=== PATIENT | male | born 1945 | race Caucasian/White ===

== ENCOUNTER 2017-10-28 13:49 | Inpatient (IN) | payer MEDICARE ==
[~2017-10-28] VITALS: Ht 172.7 cm; Wt 73.6 kg
[2017-10-28 14:34] VITALS: BP 121/76
[2017-10-28 15:17] VITALS: BP 124/76
[2017-10-28] MEDS ORDERED: MIDAZOLAM 1 MG/ML, 5ML ONE (15:20)
[2017-10-28] MEDS ORDERED: FENTANYL PF 100 MCG/2ML ONE (15:20)
[2017-10-28] MEDS ORDERED: TICAGRELOR 90 MG TABLET ONE (15:20)
[2017-10-28] MEDS ORDERED: VERAPAMIL 2.5 MG/ML, 2ML ONE (15:20)
[2017-10-28] MEDS ORDERED: BIVALIRUDIN 250 MG ONE (15:21)
[2017-10-28] MEDS ORDERED: LIDOCAINE 2%, 20ML ONE (15:21)
[2017-10-28] MEDS ORDERED: HEPARIN 1,000 UNITS/ML, 10ML ONE (15:21)
[2017-10-28] MEDS: METOPROLOL TARTRATE 25 MG TABLET PO SCH (18:34)
[2017-10-28] MEDS ORDERED: ACETAMINOPHEN 325 MG TABLET PO PRN (19:00)
[2017-10-28] MEDS ORDERED: hydrALAzine 20 MG/ML, 1ML IVPush PRN (19:00)
[2017-10-28] MEDS ORDERED: ONDANSETRON 2MG/ML, 2ML IVPush PRN (19:00)
[2017-10-28] MEDS ORDERED: HEPARIN 5,000 UNITS/ML, 1ML IV ONE (20:00)
[2017-10-28 20:19] VITALS: BP 109/68
[2017-10-28] MEDS: ATORVASTATIN 80 MG TABLET PO SCH (21:20)
[2017-10-28] MEDS: HEPARIN 25,000 UNITS/500ML PMX 500 ML IV PRN (21:23)
[2017-10-28] MEDS: SODIUM CHLORIDE 0.9% 1,000 ML IV SCH (21:50)
[2017-10-28] MEDS: morphine SULFATE 10 MG/ML, 1ML IVPush PRN (21:50)
[2017-10-29 00:40] VITALS: BP 113/70
[2017-10-29 03:47] LABS: BASOPHILS # (AUTO) 0.02 x10^3/uL (0-0.1); BASOPHILS % (AUTO) 0 % (0-1); EOSINOPHILS # (AUTO) 0.28 x10^3/uL (0-0.4); EOSINOPHILS % (AUTO) 3 % (1-7); LYMPHOCYTES # (AUTO) 4.42 x10^3/uL (1-3.4); LYMPHOCYTES % (AUTO) 40 % (22-44); MD NO; MEAN CORPUSCULAR HGB CONC 34.1 g/dL (33.2-36.2); MEAN CORPUSCULAR VOLUME 90.8 fL (81-97); MEAN PLATELET VOLUME 9.3 fL (7.4-10.4); MONOCYTES # (AUTO) 0.61 x10^3/uL (0.2-0.8); MONOCYTES % (AUTO) 6 % (2-9); NEUTROPHILS # (AUTO) 5.69 x10^3/uL (1.8-6.8); NEUTROPHILS % (AUTO) 52 % (42-75); PLATELET COUNT 133 x10^3/uL (130-400); RED BLOOD COUNT 4.69 x10^6/uL (4.38-5.82)
[2017-10-29 03:52] LABS: ALBUMIN 3.2 g/dL (3.4-5.0); ANION GAP 7 mmol/L (5-15); CALCIUM 7.9 mg/dL (8.5-10.1); CHLORIDE 110 mmol/L (98-107)
[2017-10-29 03:57] LABS: ALANINE AMINOTRANSFERASE 44 U/L (12-78); ALKALINE PHOSPHATASE 65 U/L (45-117); BILIRUBIN,TOTAL 0.8 mg/dL (0.2-1.0); CHOL/HDL RATIO 2.9; CHOLESTEROL, TOTAL 165 mg/dL (140-239); HDL CHOL % 35 % (26-37); HDL CHOLESTEROL (DIRECT) 57 mg/dL (40-60); LDL CHOLESTEROL,CALCULATED 94 mg/dL (54-169); LDL/HDL RATIO 1.6 (0.5-3.0); TOTAL PROTEIN 6.3 g/dL (6.4-8.2); TRIGLYCERIDES 71 mg/dL (50-200); VLDL CHOLESTEROL 14 mg/dL (0-25)
[2017-10-29] MEDS: HEPARIN 5,000 UNITS/ML, 1ML IV PRN ×3 (04:10→18:54)
[2017-10-29] MEDS ORDERED: ASPIRIN 325 MG TABLET EC PO SCH (06:00)
[2017-10-29] MEDS: METOPROLOL TARTRATE 25 MG TABLET PO SCH ×2 (06:11→18:00)
[2017-10-29] MEDS: morphine SULFATE 10 MG/ML, 1ML IVPush PRN ×2 (06:32→10:15)
[2017-10-29] MEDS: SODIUM CHLORIDE 0.9% 1,000 ML IV SCH ×2 (07:50→08:18)
[2017-10-29] MEDS: HYDROcodone/APAP 10/325 MG TABLET PO PRN ×3 (08:17→20:12)
[2017-10-29] MEDS: POLYETHYLENE GLYCOL 17 GM PACKET PO SCH (08:18)
[2017-10-29] MEDS: DOCUSATE 100 MG CAPSULE PO SCH ×2 (08:18→20:12)
[2017-10-29] MEDS: NICOTINE 21 MG/24 HR PATCH.TD24 TD SCH (15:04)
[2017-10-29 18:21] VITALS: BP 100/57
[2017-10-29] MEDS: ATORVASTATIN 80 MG TABLET PO SCH (20:12)
[2017-10-29] MEDS: ZOLPIDEM 5MG TABLET PO PRN ×2 (21:12→22:19)
[2017-10-29] MEDS: HEPARIN 25,000 UNITS/500ML PMX 500 ML IV PRN (22:23)
[2017-10-30] MEDS: HEPARIN 5,000 UNITS/ML, 1ML IV PRN ×2 (00:45→13:41)
[2017-10-30 00:51] VITALS: BP 129/78
[2017-10-30] MEDS: CALCIUM CARBONATE 500 MG TAB.CHEW PO PRN (01:29)
[2017-10-30] MEDS: HYDROcodone/APAP 10/325 MG TABLET PO PRN ×6 (01:58→22:14)
[2017-10-30] MEDS: SODIUM CHLORIDE 0.9% 1,000 ML IV SCH (03:00)
[2017-10-30] MEDS: morphine SULFATE 10 MG/ML, 1ML IVPush PRN ×2 (04:17→08:30)
[2017-10-30] MEDS: METOPROLOL TARTRATE 25 MG TABLET PO SCH ×2 (06:29→18:05)
[2017-10-30 08:15] VITALS: BP 152/52
[2017-10-30] MEDS ORDERED: ALBUTEROL/IPRATROPIUM 2.5MG/0.5MG, 3 ML NPPB PRN (08:30)
[2017-10-30] MEDS: DOCUSATE 100 MG CAPSULE PO SCH ×2 (08:43→22:13)
[2017-10-30] MEDS: NICOTINE 21 MG/24 HR PATCH.TD24 TD SCH (08:43)
[2017-10-30] MEDS: POLYETHYLENE GLYCOL 17 GM PACKET PO SCH (08:43)
[2017-10-30] MEDS ORDERED: NICOTINE 21 MG/24 HR PATCH.TD24 TD SCH (09:00)
[2017-10-30] MEDS: ALBUTEROL/IPRATROPIUM 2.5MG/0.5MG, 3 ML NPPB SCH ×4 (10:00→23:30)
[2017-10-30 14:30] VITALS: BP 124/73
[2017-10-30 19:07] VITALS: BP 142/81
[2017-10-30] MEDS: HEPARIN 25,000 UNITS/500ML PMX 500 ML IV PRN (19:40)
[2017-10-30] MEDS: ATORVASTATIN 80 MG TABLET PO SCH (22:13)
[2017-10-30] MEDS: DIAZEPAM 5 MG TABLET PO PRN (22:13)
[2017-10-31 02:20] VITALS: BP 119/64
[2017-10-31 05:57] VITALS: BP 145/81
[2017-10-31] MEDS: HYDROcodone/APAP 10/325 MG TABLET PO PRN ×4 (05:58→20:12)
[2017-10-31] MEDS: METOPROLOL TARTRATE 25 MG TABLET PO SCH (05:58)
[2017-10-31 07:31] VITALS: BP 130/67
[2017-10-31] MEDS: ALBUTEROL/IPRATROPIUM 2.5MG/0.5MG, 3 ML NPPB SCH ×5 (07:40→22:09)
[2017-10-31] MEDS: POLYETHYLENE GLYCOL 17 GM PACKET PO SCH (09:00)
[2017-10-31] MEDS: DOCUSATE 100 MG CAPSULE PO SCH ×2 (09:14→20:09)
[2017-10-31] MEDS: ASPIRIN 81 MG TABLET EC PO SCH (11:42)
[2017-10-31] MEDS: LISINOPRIL 5 MG TABLET PO SCH (11:42)
[2017-10-31] MEDS: HEPARIN 25,000 UNITS/500ML PMX 500 ML IV PRN (13:19)
[2017-10-31 13:57] VITALS: BP 112/62
[2017-10-31] MEDS: CARVEDILOL 6.25 MG TABLET PO SCH (16:55)
[2017-10-31 20:00] VITALS: BP 119/72
[2017-10-31] MEDS: ATORVASTATIN 80 MG TABLET PO SCH (20:09)
[2017-10-31] MEDS: DIAZEPAM 5 MG TABLET PO PRN (20:15)
[2017-11-01 02:25] VITALS: BP 138/80
[2017-11-01] MEDS: HYDROcodone/APAP 10/325 MG TABLET PO PRN ×5 (03:30→20:52)
[2017-11-01 04:59] LABS: BASOPHILS # (AUTO) 0.03 x10^3/uL (0-0.1); BASOPHILS % (AUTO) 0 % (0-1); EOSINOPHILS # (AUTO) 0.24 x10^3/uL (0-0.4); EOSINOPHILS % (AUTO) 2 % (1-7); LYMPHOCYTES # (AUTO) 2.96 x10^3/uL (1-3.4); LYMPHOCYTES % (AUTO) 28 % (22-44); MD NO; MEAN CORPUSCULAR HEMOGLOBIN 30.7 pg (27.5-34.5); MEAN CORPUSCULAR HGB CONC 33.5 g/dL (33.2-36.2); MEAN CORPUSCULAR VOLUME 91.5 fL (81-97); MEAN PLATELET VOLUME 9.8 fL (7.4-10.4); MONOCYTES % (AUTO) 5 % (2-9); NEUTROPHILS % (AUTO) 65 % (42-75); PLATELET COUNT 129 x10^3/uL (130-400); RED BLOOD COUNT 4.82 x10^6/uL (4.38-5.82); RED CELL DISTRIBUTION WIDTH 14.2 % (9.4-14.8)
[2017-11-01 05:12] LABS: CHLORIDE 109 mmol/L (98-107)
[2017-11-01 05:27] LABS: ALANINE AMINOTRANSFERASE 35 U/L (12-78); ALBUMIN 3.6 g/dL (3.4-5.0); ALKALINE PHOSPHATASE 69 U/L (45-117); ANION GAP 9 mmol/L (5-15); BILIRUBIN,TOTAL 0.9 mg/dL (0.2-1.0); CALCIUM 8.7 mg/dL (8.5-10.1); CREATININE 0.95 mg/dL (0.7-1.3); TOTAL PROTEIN 7.1 g/dL (6.4-8.2)
[2017-11-01 05:59] VITALS: BP 121/76
[2017-11-01] MEDS: ALBUTEROL/IPRATROPIUM 2.5MG/0.5MG, 3 ML NPPB SCH ×5 (06:00→22:35)
[2017-11-01] MEDS: ASPIRIN 81 MG TABLET EC PO SCH (06:07)
[2017-11-01] MEDS: CARVEDILOL 6.25 MG TABLET PO SCH ×3 (06:07→20:26)
[2017-11-01] MEDS: HEPARIN 5,000 UNITS/ML, 1ML IV PRN (06:31)
[2017-11-01 07:30] VITALS: BP 149/77
[2017-11-01] MEDS: POLYETHYLENE GLYCOL 17 GM PACKET PO SCH (07:42)
[2017-11-01] MEDS: DOCUSATE 100 MG CAPSULE PO SCH ×2 (07:52→21:42)
[2017-11-01] MEDS: LISINOPRIL 5 MG TABLET PO SCH (07:52)
[2017-11-01] MEDS: HEPARIN 25,000 UNITS/500ML PMX 500 ML IV PRN (07:58)
[2017-11-01 13:25] VITALS: BP 116/68
[2017-11-01] MEDS ORDERED: METOPROLOL TARTRATE 25 MG TABLET PO ONE (14:30)
[2017-11-01] MEDS ORDERED: ACETAMINOPHEN 325 MG TABLET PO PRN (14:30)
[2017-11-01] MEDS ORDERED: INSULIN LISPRO 100 UNITS/ML, PEN SQ-INSULIN SCH (14:30)
[2017-11-01] MEDS ORDERED: CHLORHEXIDINE 15 ML BOTTLE MM PRN (14:30)
[2017-11-01 14:56] LABS: ALANINE AMINOTRANSFERASE 39 U/L (12-78); ALBUMIN 3.5 g/dL (3.4-5.0); ANION GAP 6 mmol/L (5-15); CALCIUM 8.7 mg/dL (8.5-10.1); CHLORIDE 108 mmol/L (98-107); CREATININE 1.03 mg/dL (0.7-1.3)
[2017-11-01 14:57] LABS: BASOPHILS # (AUTO) 0.03 x10^3/uL (0-0.1); BASOPHILS % (AUTO) 0 % (0-1); EOSINOPHILS # (AUTO) 0.26 x10^3/uL (0-0.4); EOSINOPHILS % (AUTO) 3 % (1-7); LYMPHOCYTES % (AUTO) 39 % (22-44); MD NO; MEAN CORPUSCULAR HEMOGLOBIN 31.1 pg (27.5-34.5); MEAN CORPUSCULAR HGB CONC 34.1 g/dL (33.2-36.2); MEAN CORPUSCULAR VOLUME 91.1 fL (81-97); MEAN PLATELET VOLUME 9.9 fL (7.4-10.4); MONOCYTES % (AUTO) 6 % (2-9); NEUTROPHILS # (AUTO) 4.15 x10^3/uL (1.8-6.8); NEUTROPHILS % (AUTO) 51 % (42-75); PLATELET COUNT 132 x10^3/uL (130-400); RED BLOOD COUNT 4.68 x10^6/uL (4.38-5.82); RED CELL DISTRIBUTION WIDTH 14.2 % (9.4-14.8)
[2017-11-01 14:59] LABS: ALKALINE PHOSPHATASE 64 U/L (45-117); BILIRUBIN,TOTAL 0.6 mg/dL (0.2-1.0); TOTAL PROTEIN 6.9 g/dL (6.4-8.2)
[2017-11-01 15:06] LABS: INTERNATIONAL NORMALIZED RATIO 1.1 (0.93-1.1); PROTHROMBIN TIME 11.4 Seconds (9.6-11.5)
[2017-11-01 15:12] LABS: HEMOGLOBIN A1C 5.9 % (4.2-6.3)
[2017-11-01 18:54] LABS: MICROSCOPIC NOT IND
[2017-11-01 19:20] VITALS: BP 135/73
[2017-11-01] MEDS ORDERED: SODIUM CHLORIDE FLUSH 10ML SYR IVF SCH (21:00)
[2017-11-01] MEDS: DIAZEPAM 5 MG TABLET PO PRN (21:42)
[2017-11-01] MEDS: ATORVASTATIN 80 MG TABLET PO SCH (21:42)
[2017-11-01] MEDS: MUPIROCIN OINT 2%, 22GM TP SCH (22:28)
[2017-11-02] MEDS ORDERED: ALBUMIN HUMAN 5% 500 ML IV PRN (00:30)
[2017-11-02] MEDS ORDERED: METOPROLOL TARTRATE 25 MG TABLET ONE (04:35)
[2017-11-02 04:40] VITALS: BP_SYST 132; BP_SYST 134; BP_DIAS 76; BP_DIAS 79
[2017-11-02] MEDS: HYDROcodone/APAP 10/325 MG TABLET PO PRN (04:52)
[2017-11-02] MEDS: MUPIROCIN OINT 2%, 22GM TP SCH (04:52)
[2017-11-02] MEDS: ASPIRIN 81 MG TABLET EC PO SCH (04:53)
[2017-11-02] MEDS: ALBUTEROL/IPRATROPIUM 2.5MG/0.5MG, 3 ML NPPB SCH ×5 (06:00→22:24)
[2017-11-02] MEDS ORDERED: THROMBIN 5,000 UNIT VIAL TP ONE ×2 (07:09→11:35)
[2017-11-02] MEDS ORDERED: HEPARIN 1,000 UNITS/ML, 10ML ONE (07:09)
[2017-11-02] MEDS ORDERED: PAPAVERINE 30 MG/ML, 2ML ONE (07:10)
[2017-11-02] MEDS ORDERED: MIDAZOLAM 10MG/2 ML ONE (07:12)
[2017-11-02] MEDS ORDERED: FENTANYL PF 1000 MCG/20ML ONE (07:12)
[2017-11-02] MEDS ORDERED: ALBUTEROL/IPRATROPIUM 2.5MG/0.5MG, 3 ML ONE (07:27)
[2017-11-02] MEDS ORDERED: MANNITOL PMX 20% 500 ML IVPB PRN (07:30)
[2017-11-02] MEDS ORDERED: DEXMEDETOMIDINE 200 MCG in SODIUM CHLORIDE 0.9% 48 ML IV SCH (07:30)
[2017-11-02] MEDS ORDERED: POTASSIUM CHLORIDE 80 MEQ, SODIUM BICARBONATE 8.4% 10 MEQ, MAGNESIUM SULFATE 0.5 GM, LI... IV PRN (07:30)
[2017-11-02] MEDS ORDERED: PHENYLEPHRINE 10 MG in SODIUM CHLORIDE 0.9% 249 ML IV PRN ×2 (07:30→12:08)
[2017-11-02] MEDS ORDERED: VANCOMYCIN PMX 1GM/200ML 200 ML IVPB PRN (07:30)
[2017-11-02] MEDS ORDERED: EPINEPHRINE 2 MG in SODIUM CHLORIDE 0.9% 248 ML IV SCH (07:30)
[2017-11-02] MEDS ORDERED: REGULAR INSULIN 62.5 UNITS in SODIUM CHLORIDE 0.9% 249.375 ML IV PRN ×2 (07:30→12:08)
[2017-11-02] MEDS ORDERED: ROCURONIUM 10 MG/ML,10ML ONE (08:15)
[2017-11-02] MEDS: DOCUSATE 100 MG CAPSULE PO SCH ×4 (09:00→21:40)
[2017-11-02] MEDS: POLYETHYLENE GLYCOL 17 GM PACKET PO SCH (09:00)
[2017-11-02] MEDS ORDERED: KETAMINE 10 MG/ML, 20ML ONE (09:02)
[2017-11-02] MEDS ORDERED: FENTANYL PF 250 MCG/5ML ONE ×2 (09:08)
[2017-11-02] MEDS ORDERED: PAPAVERINE 30 MG/ML, 2ML IVPush ONE (09:15)
[2017-11-02] MEDS ORDERED: HEPARIN 1,000 UNITS/ML, 10ML IV ONE (09:16)
[2017-11-02] MEDS ORDERED: DOBUTAMINE 250 MG in SODIUM CHLORIDE 0.9% 230 ML IV PRN (12:08)
[2017-11-02] MEDS ORDERED: SODIUM CHLORIDE 0.9% 1,000 ML IV PRN (12:08)
[2017-11-02] MEDS ORDERED: NITROGLYCERIN/D5W PMX 240 ML IV PRN (12:08)
[2017-11-02] MEDS ORDERED: DEXMEDETOMIDINE 200 MCG in SODIUM CHLORIDE 0.9% 48 ML IV PRN (12:08)
[2017-11-02] MEDS ORDERED: methylPREDNISolone SOD SUCC 125 MG/2 ML ONE (12:25)
[2017-11-02] MEDS ORDERED: ALBUMIN HUMAN 25% 50 ML ONE (12:26)
[2017-11-02] MEDS ORDERED: LIDOCAINE 2% 100MG/5ML SYRINGE ONE (12:26)
[2017-11-02] MEDS ORDERED: HEPARIN 1,000 UNITS/ML, 30ML ONE (12:27)
[2017-11-02] MEDS ORDERED: SODIUM BICARBONATE 1 MEQ/ML, 50ML VIAL ONE (12:27)
[2017-11-02] MEDS ORDERED: BISACODYL 5 MG EC TABLET PO PRN (12:30)
[2017-11-02] MEDS ORDERED: LACTATED RINGERS 1,000 ML IV PRN (12:30)
[2017-11-02] MEDS ORDERED: INSULIN REGULAR 100 UNITS/ML, 3ML VIAL IVPush PRN (12:30)
[2017-11-02] MEDS: KSCALE TO 4.5 IV SCH ×2 (12:30→18:30)
[2017-11-02] MEDS ORDERED: PROCHLORPERAZINE 5 MG/ML, 2ML IVPush PRN (12:30)
[2017-11-02] MEDS ORDERED: EPINEPHRINE 2 MG in SODIUM CHLORIDE 0.9% 248 ML IV PRN (12:30)
[2017-11-02] MEDS: CHLORHEXIDINE 15 ML BOTTLE MM SCH (12:30)
[2017-11-02] MEDS ORDERED: ACETAMINOPHEN 650 MG SUPP PR PRN (12:30)
[2017-11-02] MEDS ORDERED: GLUCAGON 1 MG IM PRN (12:30)
[2017-11-02] MEDS ORDERED: SODIUM BICARB 8.4%, 50ML SYRINGE IV PRN (12:30)
[2017-11-02] MEDS ORDERED: DEXTROSE 4 GM TAB.CHEW PO PRN (12:30)
[2017-11-02] MEDS ORDERED: MIDAZOLAM 1 MG/ML, 5ML IVPush PRN (12:30)
[2017-11-02] MEDS ORDERED: BISACODYL 10 MG SUPP PR PRN (12:30)
[2017-11-02] MEDS ORDERED: ACETAMINOPHEN 325 MG TABLET PO PRN (12:30)
[2017-11-02] MEDS ORDERED: DEXTROSE 50%, 50ML SYRINGE IVPush PRN (12:30)
[2017-11-02 12:49] LABS: GLUCOSE BY BLOOD GAS ANALYZER 124 mg/dL (70-110); HEMOGLOBIN BY BLOOD GAS ANALYZ 12.6 g/dL (14.0-18.0); POTASSIUM BY BLOOD GAS ANALYZR 3.4 mmol/L (3.6-5.5)
[2017-11-02 12:50] LABS: FIO2 50 %
[2017-11-02] MEDS: MAGNESIUM SULFATE 1 GM in SODIUM CHLORIDE 0.9% 50 ML IVPB SCH (13:33)
[2017-11-02] MEDS ORDERED: POTASSIUM CHLORIDE PMX 100 ML IVPB ONE (15:00)
[2017-11-02] MEDS: morphine SULFATE 10 MG/ML, 1ML IVPush PRN ×4 (15:23→23:21)
[2017-11-02] MEDS: INSULIN LISPRO 100 UNITS/ML, PEN SQ-INSULIN SCH ×2 (16:00→21:40)
[2017-11-02] MEDS: ONDANSETRON 2MG/ML, 2ML IVPush PRN (16:09)
[2017-11-02] MEDS ORDERED: [UNRECOGNIZED DRUG - OTHER] IVPB SCH (19:00)
[2017-11-02] MEDS ORDERED: VANCOMYCIN IVPB SCH (19:00)
[2017-11-02] MEDS: ATORVASTATIN 80 MG TABLET PO SCH (21:40)
[2017-11-02] MEDS ORDERED: ALBUTEROL/IPRATROPIUM 2.5MG/0.5MG, 3 ML NPPB PRN (23:00)
[2017-11-02] MEDS: SODIUM CHLORIDE FLUSH 10ML SYR IVF SCH (23:07)
[2017-11-02] MEDS: MUPIROCIN OINT 2%, 22GM NAS SCH (23:07)
[2017-11-03] MEDS: HYDROcodone/APAP 5/325 TABLET PO PRN ×3 (00:23→20:06)
[2017-11-03] MEDS: KSCALE TO 4.5 IV SCH ×2 (01:12→07:22)
[2017-11-03] MEDS: CHLORHEXIDINE 15 ML BOTTLE MM SCH ×2 (01:25→12:17)
[2017-11-03] MEDS: OXYcodone IR 5MG TABLET PO PRN ×2 (01:31→12:17)
[2017-11-03] MEDS: morphine SULFATE 10 MG/ML, 1ML IVPush PRN ×6 (02:50→21:57)
[2017-11-03 04:00] VITALS: BP 111/45
[2017-11-03 04:49] LABS: MEAN CORPUSCULAR HEMOGLOBIN 30.8 pg (27.5-34.5); MEAN CORPUSCULAR HGB CONC 33.3 g/dL (33.2-36.2); MEAN CORPUSCULAR VOLUME 92.6 fL (81-97); PLATELET COUNT 173 x10^3/uL (130-400); RED BLOOD COUNT 4.27 x10^6/uL (4.38-5.82); RED CELL DISTRIBUTION WIDTH 14.4 % (9.4-14.8)
[2017-11-03 04:57] LABS: ALBUMIN 3.5 g/dL (3.4-5.0); ANION GAP 8 mmol/L (5-15); CALCIUM 8.2 mg/dL (8.5-10.1); CHLORIDE 114 mmol/L (98-107); CREATININE 1.11 mg/dL (0.7-1.3)
[2017-11-03 04:58] LABS: INTERNATIONAL NORMALIZED RATIO 1.14 (0.93-1.1); PROTHROMBIN TIME 11.8 Seconds (9.6-11.5)
[2017-11-03 05:19] LABS: BASOPHILS # (AUTO) 0.04 x10^3/uL (0-0.1); BASOPHILS % (AUTO) 0 % (0-1); EOSINOPHILS % (AUTO) 0 % (1-7); LYMPHOCYTES # (AUTO) 1.78 x10^3/uL (1-3.4); LYMPHOCYTES % (AUTO) 9 % (22-44); MD SCAN; MONOCYTES # (AUTO) 1.53 x10^3/uL (0.2-0.8); MONOCYTES % (AUTO) 8 % (2-9); NEUTROPHILS # (AUTO) 15.79 x10^3/uL (1.8-6.8); NEUTROPHILS % (AUTO) 83 % (42-75)
[2017-11-03] MEDS: INSULIN LISPRO 100 UNITS/ML, PEN SQ-INSULIN SCH ×4 (07:00→21:26)
[2017-11-03] MEDS: ALBUTEROL/IPRATROPIUM 2.5MG/0.5MG, 3 ML NPPB SCH ×4 (07:10→14:01)
[2017-11-03] MEDS: DOCUSATE 100 MG CAPSULE PO SCH ×3 (07:56→21:18)
[2017-11-03] MEDS ORDERED: FUROSEMIDE 20 MG/2 ML IV ONE (09:30)
[2017-11-03] MEDS ORDERED: ALBUMIN HUMAN 25% 100 ML IV ONE (09:30)
[2017-11-03] MEDS: POLYETHYLENE GLYCOL 17 GM PACKET PO SCH (09:37)
[2017-11-03] MEDS: SODIUM CHLORIDE FLUSH 10ML SYR IVF SCH ×2 (09:38→21:18)
[2017-11-03] MEDS: ASPIRIN 81 MG TABLET EC PO SCH (09:38)
[2017-11-03] MEDS: LISINOPRIL 5 MG TABLET PO SCH (09:40)
[2017-11-03] MEDS: MUPIROCIN OINT 2%, 22GM NAS SCH ×2 (09:40→21:18)
[2017-11-03] MEDS: LINEZOLID PMX 600MG/300ML 300 ML IV SCH ×2 (10:01→21:57)
[2017-11-03] MEDS: MAGNESIUM SULFATE 1 GM in SODIUM CHLORIDE 0.9% 50 ML IVPB SCH (12:17)
[2017-11-03] MEDS: CARVEDILOL 6.25 MG TABLET PO SCH (18:47)
[2017-11-03] MEDS: ATORVASTATIN 80 MG TABLET PO SCH (21:00)
[2017-11-03] MEDS: ZOLPIDEM 5MG TABLET PO PRN (23:23)
[2017-11-04] MEDS: morphine SULFATE 10 MG/ML, 1ML IVPush PRN ×2 (00:19→03:33)
[2017-11-04] MEDS: CHLORHEXIDINE 15 ML BOTTLE MM SCH ×4 (01:37→21:38)
[2017-11-04] MEDS: HYDROcodone/APAP 5/325 TABLET PO PRN (02:05)
[2017-11-04 03:48] LABS: BASOPHILS # (AUTO) 0.04 x10^3/uL (0-0.1); BASOPHILS % (AUTO) 0 % (0-1); EOSINOPHILS # (AUTO) 0.02 x10^3/uL (0-0.4); EOSINOPHILS % (AUTO) 0 % (1-7); LYMPHOCYTES % (AUTO) 17 % (22-44); MD NO; MEAN CORPUSCULAR HEMOGLOBIN 31.3 pg (27.5-34.5); MEAN CORPUSCULAR HGB CONC 33.8 g/dL (33.2-36.2); MEAN CORPUSCULAR VOLUME 92.5 fL (81-97); MEAN PLATELET VOLUME 9.7 fL (7.4-10.4); MONOCYTES # (AUTO) 1.07 x10^3/uL (0.2-0.8); MONOCYTES % (AUTO) 8 % (2-9); NEUTROPHILS # (AUTO) 10.74 x10^3/uL (1.8-6.8); NEUTROPHILS % (AUTO) 75 % (42-75); PLATELET COUNT 114 x10^3/uL (130-400); RED BLOOD COUNT 3.61 x10^6/uL (4.38-5.82); RED CELL DISTRIBUTION WIDTH 14.6 % (9.4-14.8)
[2017-11-04 03:56] LABS: INTERNATIONAL NORMALIZED RATIO 1.24 (0.93-1.1); PROTHROMBIN TIME 12.8 Seconds (9.6-11.5)
[2017-11-04 03:59] LABS: ANION GAP 7 mmol/L (5-15); CALCIUM 7.6 mg/dL (8.5-10.1); CHLORIDE 111 mmol/L (98-107); CREATININE 0.96 mg/dL (0.7-1.3)
[2017-11-04 04:00] VITALS: BP 117/59
[2017-11-04] MEDS: INSULIN LISPRO 100 UNITS/ML, PEN SQ-INSULIN SCH ×4 (04:53→21:38)
[2017-11-04] MEDS: CARVEDILOL 6.25 MG TABLET PO SCH ×2 (05:44→17:35)
[2017-11-04] MEDS: ALBUTEROL/IPRATROPIUM 2.5MG/0.5MG, 3 ML NPPB SCH ×4 (07:00→19:54)
[2017-11-04] MEDS: POLYETHYLENE GLYCOL 17 GM PACKET PO SCH (09:00)
[2017-11-04] MEDS: ENOXAPARIN 40 MG/0.4 ML SQ SCH (09:00)
[2017-11-04] MEDS: LISINOPRIL 5 MG TABLET PO SCH ×2 (09:00→18:18)
[2017-11-04] MEDS ORDERED: FUROSEMIDE 20 MG/2 ML ONE (10:24)
[2017-11-04] MEDS: LINEZOLID PMX 600MG/300ML 300 ML IV SCH ×2 (10:29→21:38)
[2017-11-04] MEDS ORDERED: FUROSEMIDE 20 MG/2 ML IV ONE ×2 (10:30→16:00)
[2017-11-04] MEDS: SODIUM CHLORIDE FLUSH 10ML SYR IVF SCH ×2 (10:30→21:36)
[2017-11-04] MEDS: ASPIRIN 81 MG TABLET EC PO SCH (10:35)
[2017-11-04] MEDS: DOCUSATE 100 MG CAPSULE PO SCH ×2 (10:35→21:37)
[2017-11-04] MEDS: MUPIROCIN OINT 2%, 22GM NAS SCH ×2 (10:37→21:37)
[2017-11-04] MEDS: MAGNESIUM SULFATE 1 GM in SODIUM CHLORIDE 0.9% 50 ML IVPB SCH (13:56)
[2017-11-04] MEDS: FUROSEMIDE 20 MG/2 ML IV SCH (17:35)
[2017-11-04] MEDS: OXYcodone IR 5MG TABLET PO PRN ×2 (18:22→23:33)
[2017-11-04] MEDS ORDERED: METOPROLOL 1 MG/ML, 5ML ONE (18:24)
[2017-11-04] MEDS ORDERED: METOPROLOL 1 MG/ML, 5ML IVPush STA (18:28)
[2017-11-04] MEDS ORDERED: AMIODARONE 900 MG in DEXTROSE 5% 482 ML IV PRN (18:30)
[2017-11-04] MEDS ORDERED: FILTER 0.22 MICRON IV ONE (18:30)
[2017-11-04] MEDS ORDERED: AMIODARONE 150 MG in DEXTROSE 5% 100 ML IV ONE (18:30)
[2017-11-04] MEDS: ATORVASTATIN 80 MG TABLET PO SCH (21:00)
[2017-11-05] MEDS: OXYcodone IR 5MG TABLET PO PRN ×2 (02:45→19:27)
[2017-11-05] MEDS: ONDANSETRON 2MG/ML, 2ML IVPush PRN (02:51)
[2017-11-05 04:00] VITALS: BP 113/57
[2017-11-05 05:28] LABS: ANION GAP 8 mmol/L (5-15); CALCIUM 7.5 mg/dL (8.5-10.1); CHLORIDE 107 mmol/L (98-107)
[2017-11-05 05:30] LABS: CREATININE 0.97 mg/dL (0.7-1.3)
[2017-11-05 06:00] VITALS: BP 111/59
[2017-11-05] MEDS: CARVEDILOL 6.25 MG TABLET PO SCH ×2 (06:28→17:32)
[2017-11-05] MEDS: ALBUTEROL/IPRATROPIUM 2.5MG/0.5MG, 3 ML NPPB SCH ×4 (07:00→18:40)
[2017-11-05] MEDS ORDERED: FUROSEMIDE 20 MG/2 ML IV SCH (07:30)
[2017-11-05] MEDS: FUROSEMIDE 20 MG/2 ML IV SCH ×2 (07:51→17:31)
[2017-11-05] MEDS: POTASSIUM CHLORIDE 10 MEQ TABLET.ER PO SCH ×2 (07:52→17:32)
[2017-11-05] MEDS: HYDROcodone/APAP 5/325 TABLET PO PRN ×3 (07:53→21:28)
[2017-11-05] MEDS: INSULIN LISPRO 100 UNITS/ML, PEN SQ-INSULIN SCH ×4 (08:03→21:00)
[2017-11-05] MEDS ORDERED: LISINOPRIL 5 MG TABLET PO SCH (09:00)
[2017-11-05] MEDS: POLYETHYLENE GLYCOL 17 GM PACKET PO SCH (09:27)
[2017-11-05] MEDS: DOCUSATE 100 MG CAPSULE PO SCH ×2 (09:27→21:28)
[2017-11-05] MEDS: ASPIRIN 81 MG TABLET EC PO SCH (09:27)
[2017-11-05] MEDS: CLOPIDOGREL 75 MG TABLET PO SCH (09:27)
[2017-11-05] MEDS: LINEZOLID PMX 600MG/300ML 300 ML IV SCH ×2 (09:28→21:30)
[2017-11-05] MEDS: ENOXAPARIN 40 MG/0.4 ML SQ SCH (09:28)
[2017-11-05] MEDS: SODIUM CHLORIDE FLUSH 10ML SYR IVF SCH ×2 (09:35→21:25)
[2017-11-05] MEDS: MUPIROCIN OINT 2%, 22GM NAS SCH ×2 (09:36→21:25)
[2017-11-05] MEDS ORDERED: POTASSIUM CHLORIDE 20 MEQ TAB.ER.PRT PO ONE (10:00)
[2017-11-05] MEDS: CALCIUM CARBONATE 500 MG TAB.CHEW PO PRN (12:05)
[2017-11-05] MEDS: FLUTICASONE/VILANTEROL 200-25MCG/INH INH SCH (12:39)
[2017-11-05] MEDS: CHLORHEXIDINE 15 ML BOTTLE MM SCH ×2 (12:48→21:27)
[2017-11-05] MEDS ORDERED: PHENYLEPHRINE 10 MG in SODIUM CHLORIDE 0.9% 249 ML IV PRN (13:00)
[2017-11-05] MEDS: PHENYLEPHRINE 20 MG in SODIUM CHLORIDE 0.9% 248 ML IV PRN (15:06)
[2017-11-05] MEDS: ATORVASTATIN 80 MG TABLET PO SCH (21:00)
[2017-11-06 04:30] VITALS: BP 141/70
[2017-11-06] MEDS: CALCIUM CARBONATE 500 MG TAB.CHEW PO PRN (04:34)
[2017-11-06] MEDS: OXYcodone IR 5MG TABLET PO PRN ×4 (04:34→21:50)
[2017-11-06 05:10] LABS: ANION GAP 9 mmol/L (5-15); CALCIUM 7.4 mg/dL (8.5-10.1); CHLORIDE 109 mmol/L (98-107)
[2017-11-06 05:11] LABS: CREATININE 1.16 mg/dL (0.7-1.3)
[2017-11-06] MEDS: ALBUTEROL/IPRATROPIUM 2.5MG/0.5MG, 3 ML NPPB SCH ×4 (06:25→22:19)
[2017-11-06] MEDS: INSULIN LISPRO 100 UNITS/ML, PEN SQ-INSULIN SCH ×4 (06:28→20:41)
[2017-11-06] MEDS: FUROSEMIDE 20 MG/2 ML IV SCH ×2 (09:02→16:46)
[2017-11-06] MEDS: DOCUSATE 100 MG CAPSULE PO SCH ×2 (09:03→20:47)
[2017-11-06] MEDS: ENOXAPARIN 40 MG/0.4 ML SQ SCH (09:03)
[2017-11-06] MEDS: POLYETHYLENE GLYCOL 17 GM PACKET PO SCH (09:03)
[2017-11-06] MEDS: ASPIRIN 81 MG TABLET EC PO SCH (09:03)
[2017-11-06] MEDS: FLUTICASONE/VILANTEROL 200-25MCG/INH INH SCH (09:04)
[2017-11-06] MEDS: MUPIROCIN OINT 2%, 22GM NAS SCH ×2 (09:04→20:47)
[2017-11-06] MEDS: SODIUM CHLORIDE FLUSH 10ML SYR IVF SCH ×2 (09:04→20:46)
[2017-11-06] MEDS: CLOPIDOGREL 75 MG TABLET PO SCH (09:04)
[2017-11-06] MEDS: CHLORHEXIDINE 15 ML BOTTLE MM SCH (11:31)
[2017-11-06] MEDS: LINEZOLID 600 MG TABLET PO SCH ×2 (11:48→20:47)
[2017-11-06] MEDS: ATORVASTATIN 80 MG TABLET PO SCH (20:47)
[2017-11-06] MEDS: HYDROcodone/APAP 5/325 TABLET PO PRN (21:12)
[2017-11-07 04:00] VITALS: BP 105/55
[2017-11-07] MEDS: OXYcodone IR 5MG TABLET PO PRN ×5 (04:31→20:38)
[2017-11-07 05:20] LABS: ANION GAP 8 mmol/L (5-15); CALCIUM 7.6 mg/dL (8.5-10.1); CHLORIDE 106 mmol/L (98-107); CREATININE 0.94 mg/dL (0.7-1.3)
[2017-11-07 05:21] LABS: BASOPHILS # (AUTO) 0.05 x10^3/uL (0-0.1); BASOPHILS % (AUTO) 0 % (0-1); EOSINOPHILS # (AUTO) 0.01 x10^3/uL (0-0.4); EOSINOPHILS % (AUTO) 0 % (1-7); LYMPHOCYTES # (AUTO) 3.67 x10^3/uL (1-3.4); LYMPHOCYTES % (AUTO) 21 % (22-44); MD NO; MEAN CORPUSCULAR HEMOGLOBIN 30.8 pg (27.5-34.5); MEAN CORPUSCULAR HGB CONC 33.4 g/dL (33.2-36.2); MEAN CORPUSCULAR VOLUME 92.2 fL (81-97); MEAN PLATELET VOLUME 10.5 fL (7.4-10.4); MONOCYTES # (AUTO) 0.95 x10^3/uL (0.2-0.8); MONOCYTES % (AUTO) 5 % (2-9); NEUTROPHILS % (AUTO) 73 % (42-75); PLATELET COUNT 169 x10^3/uL (130-400); RED BLOOD COUNT 4.15 x10^6/uL (4.38-5.82); RED CELL DISTRIBUTION WIDTH 13.8 % (9.4-14.8)
[2017-11-07] MEDS: INSULIN LISPRO 100 UNITS/ML, PEN SQ-INSULIN SCH ×4 (07:00→20:39)
[2017-11-07] MEDS: ALBUTEROL/IPRATROPIUM 2.5MG/0.5MG, 3 ML NPPB SCH ×4 (07:07→19:52)
[2017-11-07] MEDS: FUROSEMIDE 20 MG/2 ML IV SCH ×2 (07:38→17:14)
[2017-11-07] MEDS: MUPIROCIN OINT 2%, 22GM NAS SCH (08:33)
[2017-11-07] MEDS: ENOXAPARIN 40 MG/0.4 ML SQ SCH (08:33)
[2017-11-07] MEDS: DOCUSATE 100 MG CAPSULE PO SCH ×2 (08:33→20:38)
[2017-11-07] MEDS: LINEZOLID 600 MG TABLET PO SCH ×2 (08:33→20:38)
[2017-11-07] MEDS: CLOPIDOGREL 75 MG TABLET PO SCH (08:33)
[2017-11-07] MEDS: FLUTICASONE/VILANTEROL 200-25MCG/INH INH SCH (08:33)
[2017-11-07] MEDS: ASPIRIN 81 MG TABLET EC PO SCH (08:33)
[2017-11-07] MEDS: POLYETHYLENE GLYCOL 17 GM PACKET PO SCH (08:33)
[2017-11-07] MEDS: SODIUM CHLORIDE FLUSH 10ML SYR IVF SCH ×2 (08:34→20:38)
[2017-11-07] MEDS: HYDROcodone/APAP 5/325 TABLET PO PRN (10:26)
[2017-11-07] MEDS: ATORVASTATIN 80 MG TABLET PO SCH (20:38)
[2017-11-08] MEDS: OXYcodone IR 5MG TABLET PO PRN ×4 (00:53→20:32)
[2017-11-08] MEDS: CALCIUM CARBONATE 500 MG TAB.CHEW PO PRN ×3 (02:22→10:53)
[2017-11-08 04:00] VITALS: BP 147/54
[2017-11-08 04:05] LABS: ANION GAP 7 mmol/L (5-15); CHLORIDE 101 mmol/L (98-107)
[2017-11-08 04:06] LABS: CREATININE 0.98 mg/dL (0.7-1.3)
[2017-11-08] MEDS: INSULIN LISPRO 100 UNITS/ML, PEN SQ-INSULIN SCH ×2 (07:00→11:00)
[2017-11-08] MEDS: ALBUTEROL/IPRATROPIUM 2.5MG/0.5MG, 3 ML NPPB SCH ×4 (07:00→21:07)
[2017-11-08] MEDS: FLUTICASONE/VILANTEROL 200-25MCG/INH INH SCH (09:00)
[2017-11-08] MEDS: ASPIRIN 81 MG TABLET EC PO SCH (09:18)
[2017-11-08] MEDS: HYDROcodone/APAP 5/325 TABLET PO PRN ×2 (09:18→17:32)
[2017-11-08] MEDS: CLOPIDOGREL 75 MG TABLET PO SCH (09:18)
[2017-11-08] MEDS: LINEZOLID 600 MG TABLET PO SCH ×2 (09:18→20:32)
[2017-11-08] MEDS: DOCUSATE 100 MG CAPSULE PO SCH ×2 (09:18→20:32)
[2017-11-08] MEDS: FUROSEMIDE 20 MG/2 ML IV SCH ×2 (09:18→17:33)
[2017-11-08] MEDS: ENOXAPARIN 40 MG/0.4 ML SQ SCH (09:19)
[2017-11-08] MEDS: POLYETHYLENE GLYCOL 17 GM PACKET PO SCH (09:19)
[2017-11-08] MEDS: SODIUM CHLORIDE FLUSH 10ML SYR IVF SCH ×3 (09:33→20:13)
[2017-11-08] MEDS ORDERED: MAGNESIUM HYDROXIDE 8%, 30ML UDC PO PRN (13:00)
[2017-11-08 20:00] VITALS: BP 175/80
[2017-11-08] MEDS: ATORVASTATIN 80 MG TABLET PO SCH (20:32)
[2017-11-09] VITALS (8 sets, daily range): BP systolic 83–135; BP diastolic 47–69
[2017-11-09] MEDS: HYDROcodone/APAP 5/325 TABLET PO PRN ×2 (01:22→07:49)
[2017-11-09 05:15] LABS: BASOPHILS # (AUTO) 0.04 x10^3/uL (0-0.1); BASOPHILS % (AUTO) 0 % (0-1); EOSINOPHILS # (AUTO) 0.04 x10^3/uL (0-0.4); EOSINOPHILS % (AUTO) 0 % (1-7); LYMPHOCYTES # (AUTO) 4.01 x10^3/uL (1-3.4); LYMPHOCYTES % (AUTO) 22 % (22-44); MD NO; MEAN CORPUSCULAR HGB CONC 33.7 g/dL (33.2-36.2); MEAN CORPUSCULAR VOLUME 92.2 fL (81-97); MEAN PLATELET VOLUME 9.6 fL (7.4-10.4); MONOCYTES # (AUTO) 0.88 x10^3/uL (0.2-0.8); MONOCYTES % (AUTO) 5 % (2-9); NEUTROPHILS # (AUTO) 13.09 x10^3/uL (1.8-6.8); NEUTROPHILS % (AUTO) 73 % (42-75); PLATELET COUNT 189 x10^3/uL (130-400); RED BLOOD COUNT 4.79 x10^6/uL (4.38-5.82); RED CELL DISTRIBUTION WIDTH 13.7 % (9.4-14.8)
[2017-11-09 05:21] LABS: ANION GAP 9 mmol/L (5-15); CALCIUM 8.1 mg/dL (8.5-10.1); CHLORIDE 101 mmol/L (98-107)
[2017-11-09] MEDS: OXYcodone IR 5MG TABLET PO PRN ×3 (05:43→20:23)
[2017-11-09] MEDS: ALBUTEROL/IPRATROPIUM 2.5MG/0.5MG, 3 ML NPPB SCH (07:13)
[2017-11-09] MEDS: LINEZOLID 600 MG TABLET PO SCH ×2 (07:49→20:23)
[2017-11-09] MEDS: CLOPIDOGREL 75 MG TABLET PO SCH (07:49)
[2017-11-09] MEDS: ASPIRIN 81 MG TABLET EC PO SCH (07:49)
[2017-11-09] MEDS: DOCUSATE 100 MG CAPSULE PO SCH ×2 (07:49→20:22)
[2017-11-09] MEDS: POLYETHYLENE GLYCOL 17 GM PACKET PO SCH (07:50)
[2017-11-09] MEDS: ENOXAPARIN 40 MG/0.4 ML SQ SCH (07:50)
[2017-11-09] MEDS: FUROSEMIDE 20 MG/2 ML IV SCH ×2 (07:50→17:00)
[2017-11-09] MEDS: FLUTICASONE/VILANTEROL 200-25MCG/INH INH SCH (07:50)
[2017-11-09] MEDS: SODIUM CHLORIDE FLUSH 10ML SYR IVF SCH ×5 (07:51→20:22)
[2017-11-09] MEDS: CARVEDILOL 3.125 MG TABLET PO SCH ×2 (10:08→20:22)
[2017-11-09] MEDS ORDERED: MAGNESIUM HYDROXIDE 8%, 30ML UDC PO PRN (11:30)
[2017-11-09] MEDS: SODIUM CHLORIDE 0.9% 500 ML IV SCH ×2 (17:00→18:00)
[2017-11-09 17:27] LABS: OCCULT BLOOD POSITIVE (NEGATIVE)
[2017-11-09] MEDS: ATORVASTATIN 80 MG TABLET PO SCH (20:23)
[2017-11-10] VITALS (18 sets, daily range): BP systolic 78–126; BP diastolic 31–71
[2017-11-10] MEDS ORDERED: SODIUM CHLORIDE 0.9%, 500ML IVBOLUS ONE (01:00)
[2017-11-10 04:26] LABS: MEAN CORPUSCULAR HGB CONC 33.7 g/dL (33.2-36.2); MEAN CORPUSCULAR VOLUME 92.1 fL (81-97); MEAN PLATELET VOLUME 9.5 fL (7.4-10.4); PLATELET COUNT 220 x10^3/uL (130-400); RED BLOOD COUNT 2.81 x10^6/uL (4.38-5.82); RED CELL DISTRIBUTION WIDTH 13.7 % (9.4-14.8)
[2017-11-10 04:28] LABS: ANION GAP 9 mmol/L (5-15); CALCIUM 7.1 mg/dL (8.5-10.1); CHLORIDE 106 mmol/L (98-107)
[2017-11-10 04:30] LABS: CREATININE 1.01 mg/dL (0.7-1.3)
[2017-11-10] MEDS: PHENYLEPHRINE 20 MG in SODIUM CHLORIDE 0.9% 248 ML IV PRN ×3 (05:11→21:01)
[2017-11-10 05:37] LABS: MD YES
[2017-11-10 05:38] LABS: LYMPH#(MANUAL) 5.42 x10^3/uL (1-3.4); LYMPHS% (MANUAL) 21 % (22-44); METAMYELOCYTES# (MANUAL) 0.26 x10^3/uL (0-0); METAMYELOCYTES% (MANUAL) 1 % (0-1); MONOS#(MANUAL) 0.77 x10^3/uL (0.3-2.7); MONOS% (MANUAL) 3 % (2-9); SEG#(MANUAL) 19.35 x10^3/uL (1.8-6.8); SEGS% (MANUAL) 75 % (42-75)
[2017-11-10 05:39] LABS: POLYCHROMASIA 1+
[2017-11-10 05:41] LABS: <PLATELET ESTIMATE> ADEQUATE
[2017-11-10 05:42] LABS: <PLT MORPHOLOGY> NORMAL PLT MORPH
[2017-11-10] MEDS: CARVEDILOL 3.125 MG TABLET PO SCH ×2 (06:00→18:00)
[2017-11-10] MEDS: FUROSEMIDE 20 MG/2 ML IV SCH ×2 (07:30→17:00)
[2017-11-10] MEDS: ASPIRIN 81 MG TABLET EC PO SCH (09:00)
[2017-11-10] MEDS: CLOPIDOGREL 75 MG TABLET PO SCH (09:00)
[2017-11-10] MEDS: LINEZOLID 600 MG TABLET PO SCH ×2 (09:00→20:06)
[2017-11-10] MEDS ORDERED: PANTOPRAZOLE 40 MG IV IVPush ONE (09:00)
[2017-11-10] MEDS: ENOXAPARIN 40 MG/0.4 ML SQ SCH (09:00)
[2017-11-10] MEDS: FLUTICASONE/VILANTEROL 200-25MCG/INH INH SCH (09:00)
[2017-11-10] MEDS: DOCUSATE 100 MG CAPSULE PO SCH ×2 (09:00→20:12)
[2017-11-10] MEDS: POLYETHYLENE GLYCOL 17 GM PACKET PO SCH (09:00)
[2017-11-10] MEDS: SODIUM CHLORIDE FLUSH 10ML SYR IVF SCH ×3 (09:08→09:09)
[2017-11-10] MEDS ORDERED: PANTOPRAZOLE 80 MG in SODIUM CHLORIDE 0.9% 50 ML IV ONE (14:30)
[2017-11-10] MEDS ORDERED: metroNIDAZOLE 500 MG TABLET PO SCH (15:00)
[2017-11-10] MEDS ORDERED: BISMUTH SUBSALICYLATE 175 MG/5 ML MAX/STR PO SCH (15:00)
[2017-11-10] MEDS: PINK BISMUTH 87.33 MG/5 ML ORAL SUSP PO SCH ×2 (15:30→22:21)
[2017-11-10] MEDS: PANTOPRAZOLE 80 MG in SODIUM CHLORIDE 0.9% 100 ML IV SCH (16:09)
[2017-11-10 16:20] LABS: INTERNATIONAL NORMALIZED RATIO 2.01 (0.93-1.1); PROTHROMBIN TIME 20.6 Seconds (9.6-11.5)
[2017-11-10] MEDS: metroNIDAZOLE 500 MG TABLET PO SCH ×2 (16:27→21:01)
[2017-11-10] MEDS ORDERED: EPINEPHRINE SYRINGE 0.1 MG/ML, 10ML ONE (16:59)
[2017-11-10] MEDS: OXYcodone IR 5MG TABLET PO PRN (20:06)
[2017-11-10] MEDS: ATORVASTATIN 80 MG TABLET PO SCH (20:06)
[2017-11-10] MEDS: CLARITHROMYCIN 500 MG TABLET PO SCH (21:01)
[2017-11-11] VITALS (14 sets, daily range): BP systolic 107–139; BP diastolic 36–59
[2017-11-11] MEDS: PANTOPRAZOLE 80 MG in SODIUM CHLORIDE 0.9% 100 ML IV SCH ×3 (00:48→21:46)
[2017-11-11] MEDS: PHENYLEPHRINE 20 MG in SODIUM CHLORIDE 0.9% 248 ML IV PRN ×3 (01:11→12:29)
[2017-11-11] MEDS: metroNIDAZOLE 500 MG TABLET PO SCH ×4 (04:47→20:01)
[2017-11-11] MEDS: PINK BISMUTH 87.33 MG/5 ML ORAL SUSP PO SCH ×4 (04:48→21:46)
[2017-11-11] MEDS: CARVEDILOL 3.125 MG TABLET PO SCH ×2 (04:48→16:48)
[2017-11-11 07:26] LABS: ALANINE AMINOTRANSFERASE 51 U/L (12-78); ALBUMIN 2.4 g/dL (3.4-5.0); ANION GAP 8 mmol/L (5-15); CHLORIDE 112 mmol/L (98-107); CREATININE 0.89 mg/dL (0.7-1.3); INTERNATIONAL NORMALIZED RATIO 1.53 (0.93-1.1); PROTHROMBIN TIME 15.8 Seconds (9.6-11.5)
[2017-11-11 07:28] LABS: ALKALINE PHOSPHATASE 47 U/L (45-117); BILIRUBIN,TOTAL 0.9 mg/dL (0.2-1.0); TOTAL PROTEIN 4.7 g/dL (6.4-8.2)
[2017-11-11 07:45] LABS: MEAN CORPUSCULAR HEMOGLOBIN 31.5 pg (27.5-34.5); MEAN CORPUSCULAR HGB CONC 34.4 g/dL (33.2-36.2); MEAN CORPUSCULAR VOLUME 91.6 fL (81-97); MEAN PLATELET VOLUME 9.3 fL (7.4-10.4); PLATELET COUNT 131 x10^3/uL (130-400); RED BLOOD COUNT 2.21 x10^6/uL (4.38-5.82); RED CELL DISTRIBUTION WIDTH 13.7 % (9.4-14.8)
[2017-11-11 07:50] LABS: MD YES
[2017-11-11 07:52] LABS: BAND#(MANUAL) 1.09 x10^3/uL; BANDS%(MANUAL) 4 % (0-7); LYMPH#(MANUAL) 4.91 x10^3/uL (1-3.4); LYMPHS% (MANUAL) 18 % (22-44); METAMYELOCYTES# (MANUAL) 0.27 x10^3/uL (0-0); METAMYELOCYTES% (MANUAL) 1 % (0-1); MONOS#(MANUAL) 0.27 x10^3/uL (0.3-2.7); MONOS% (MANUAL) 1 % (2-9); REACTIVE LYMPHS # (MANUAL) 0.27 x10^3/uL (0-0); REACTIVE LYMPHS % (MANUAL) 1 % (0-0); SEG#(MANUAL) 20.48 x10^3/uL (1.8-6.8); SEGS% (MANUAL) 75 % (42-75)
[2017-11-11 07:53] LABS: <PLATELET ESTIMATE> ADEQUATE; <PLT MORPHOLOGY> NORMAL PLT MORPH; POLYCHROMASIA 1+
[2017-11-11] MEDS: FLUTICASONE/VILANTEROL 200-25MCG/INH INH SCH (09:00)
[2017-11-11] MEDS: DOCUSATE 100 MG CAPSULE PO SCH ×2 (09:00→19:00)
[2017-11-11] MEDS: POLYETHYLENE GLYCOL 17 GM PACKET PO SCH (09:00)
[2017-11-11] MEDS: CLARITHROMYCIN 500 MG TABLET PO SCH ×2 (09:30→20:01)
[2017-11-11] MEDS: LINEZOLID 600 MG TABLET PO SCH ×2 (09:30→20:02)
[2017-11-11] MEDS: FUROSEMIDE 20 MG/2 ML IV SCH ×2 (09:31→18:45)
[2017-11-11] MEDS: OXYcodone IR 5MG TABLET PO PRN ×4 (09:51→21:26)
[2017-11-11] MEDS: ATORVASTATIN 80 MG TABLET PO SCH (20:02)
[2017-11-12 01:08] VITALS: BP 99/42
[2017-11-12 01:34] VITALS: BP 102/43
[2017-11-12 01:52] VITALS: BP 97/40
[2017-11-12] MEDS: metroNIDAZOLE 500 MG TABLET PO SCH ×4 (02:59→20:07)
[2017-11-12] MEDS: PINK BISMUTH 87.33 MG/5 ML ORAL SUSP PO SCH ×4 (02:59→20:07)
[2017-11-12] MEDS: OXYcodone IR 5MG TABLET PO PRN ×4 (02:59→20:07)
[2017-11-12 03:04] VITALS: BP 118/52
[2017-11-12] MEDS: CARVEDILOL 3.125 MG TABLET PO SCH ×2 (06:00→18:00)
[2017-11-12 06:04] LABS: CHLORIDE 106 mmol/L (98-107)
[2017-11-12 06:09] LABS: ANION GAP 8 mmol/L (5-15); CALCIUM 6.8 mg/dL (8.5-10.1); CREATININE 0.73 mg/dL (0.7-1.3)
[2017-11-12 06:50] LABS: MEAN CORPUSCULAR HEMOGLOBIN 31.6 pg (27.5-34.5); MEAN CORPUSCULAR HGB CONC 35.7 g/dL (33.2-36.2); MEAN CORPUSCULAR VOLUME 88.5 fL (81-97); RED BLOOD COUNT 2.98 x10^6/uL (4.38-5.82); RED CELL DISTRIBUTION WIDTH 14.1 % (9.4-14.8)
[2017-11-12 07:19] LABS: MEAN PLATELET VOLUME 8.9 fL (7.4-10.4); PLATELET COUNT 87 x10^3/uL (130-400)
[2017-11-12 07:20] LABS: MD YES
[2017-11-12 07:21] LABS: BAND#(MANUAL) 0.22 x10^3/uL; BANDS%(MANUAL) 1 % (0-7); EOS#(MANUAL) 0.22 x10^3/uL (0.0-0.4); EOS% (MANUAL) 1 % (1-7); LYMPH#(MANUAL) 3.71 x10^3/uL (1-3.4); LYMPHS% (MANUAL) 17 % (22-44); MONOS#(MANUAL) 1.09 x10^3/uL (0.3-2.7); MONOS% (MANUAL) 5 % (2-9); SEG#(MANUAL) 16.57 x10^3/uL (1.8-6.8); SEGS% (MANUAL) 76 % (42-75)
[2017-11-12 07:22] LABS: <PLATELET ESTIMATE> DECREASED; POLYCHROMASIA 1+
[2017-11-12 07:23] LABS: <PLT MORPHOLOGY> NORMAL PLT MORPH
[2017-11-12 07:24] LABS: BASOPHILLIC STIPPLING 1+
[2017-11-12] MEDS: FUROSEMIDE 20 MG/2 ML IV SCH (07:30)
[2017-11-12] MEDS: HYDROcodone/APAP 5/325 TABLET PO PRN (07:36)
[2017-11-12] MEDS: POLYETHYLENE GLYCOL 17 GM PACKET PO SCH (07:59)
[2017-11-12] MEDS: LINEZOLID 600 MG TABLET PO SCH ×2 (07:59→20:07)
[2017-11-12] MEDS: CLARITHROMYCIN 500 MG TABLET PO SCH ×2 (07:59→19:24)
[2017-11-12] MEDS: DOCUSATE 100 MG CAPSULE PO SCH ×2 (07:59→20:33)
[2017-11-12] MEDS: FLUTICASONE/VILANTEROL 200-25MCG/INH INH SCH (07:59)
[2017-11-12] MEDS ORDERED: MAGNESIUM SULFATE PMX 2GM/50ML 50 ML IV ONE (08:00)
[2017-11-12] MEDS ORDERED: POTASSIUM CHLORIDE 20 MEQ TAB.ER.PRT PO ONE ×2 (08:00→12:00)
[2017-11-12] MEDS: PANTOPRAZOLE 80 MG in SODIUM CHLORIDE 0.9% 100 ML IV SCH ×2 (09:30→19:23)
[2017-11-12] MEDS: ATORVASTATIN 80 MG TABLET PO SCH (20:07)
[2017-11-13] MEDS: metroNIDAZOLE 500 MG TABLET PO SCH ×2 (02:06→09:00)
[2017-11-13] MEDS: PINK BISMUTH 87.33 MG/5 ML ORAL SUSP PO SCH (02:25)
[2017-11-13] MEDS: CARVEDILOL 3.125 MG TABLET PO SCH ×2 (04:41→17:32)
[2017-11-13] MEDS: PANTOPRAZOLE 80 MG in SODIUM CHLORIDE 0.9% 100 ML IV SCH (05:25)
[2017-11-13 05:41] LABS: MEAN CORPUSCULAR HEMOGLOBIN 32.2 pg (27.5-34.5); MEAN CORPUSCULAR HGB CONC 35.8 g/dL (33.2-36.2); MEAN CORPUSCULAR VOLUME 90.1 fL (81-97); PLATELET COUNT 103 x10^3/uL (130-400); RED BLOOD COUNT 2.86 x10^6/uL (4.38-5.82); RED CELL DISTRIBUTION WIDTH 13.9 % (9.4-14.8)
[2017-11-13 05:46] LABS: ALANINE AMINOTRANSFERASE 30 U/L (12-78); ALBUMIN 2.1 g/dL (3.4-5.0); ANION GAP 4 mmol/L (5-15); CALCIUM 7.1 mg/dL (8.5-10.1); CHLORIDE 107 mmol/L (98-107)
[2017-11-13 05:49] LABS: ALKALINE PHOSPHATASE 51 U/L (45-117); BILIRUBIN,TOTAL 0.9 mg/dL (0.2-1.0); CREATININE 0.74 mg/dL (0.7-1.3); TOTAL PROTEIN 4.4 g/dL (6.4-8.2)
[2017-11-13 06:07] LABS: MD YES
[2017-11-13 06:14] LABS: LYMPH#(MANUAL) 3.26 x10^3/uL (1-3.4); LYMPHS% (MANUAL) 16 % (22-44); METAMYELOCYTES% (MANUAL) 1 % (0-1); MONOS#(MANUAL) 0.82 x10^3/uL (0.3-2.7); MONOS% (MANUAL) 4 % (2-9); SEG#(MANUAL) 16.12 x10^3/uL (1.8-6.8); SEGS% (MANUAL) 79 % (42-75)
[2017-11-13 06:15] LABS: <PLATELET ESTIMATE> DECREASED; <PLT MORPHOLOGY> NORMAL PLT MORPH; ANISOCYTOSIS 1+; POLYCHROMASIA 1+
[2017-11-13 06:17] LABS: BASOPHILLIC STIPPLING 1+
[2017-11-13] MEDS: CLARITHROMYCIN 500 MG TABLET PO SCH (08:00)
[2017-11-13] MEDS ORDERED: PROPOFOL 10 MG/ML, 20ML ONE (08:14)
[2017-11-13] MEDS ORDERED: MIDAZOLAM 1 MG/ML, 2ML ONE ×2 (08:17→08:52)
[2017-11-13] MEDS ORDERED: FENTANYL PF 100 MCG/2ML ONE ×2 (08:17→08:52)
[2017-11-13] MEDS ORDERED: MEPERIDINE/PF 25MG/0.5ML IVPush PRN (08:30)
[2017-11-13] MEDS ORDERED: morphine SULFATE 10 MG/ML, 1ML IV PRN (08:30)
[2017-11-13] MEDS ORDERED: FENTANYL PF 100 MCG/2ML IV PRN (08:30)
[2017-11-13] MEDS ORDERED: ONDANSETRON 2MG/ML, 2ML IVPush PRN (08:30)
[2017-11-13] MEDS ORDERED: OXYcodone 5 MG/5 ML ORAL.SOL UDC PO PRN (08:30)
[2017-11-13] MEDS: POLYETHYLENE GLYCOL 17 GM PACKET PO SCH (08:51)
[2017-11-13] MEDS: DOCUSATE 100 MG CAPSULE PO SCH ×2 (08:51→20:51)
[2017-11-13] MEDS: LINEZOLID 600 MG TABLET PO SCH (09:00)
[2017-11-13] MEDS: OXYcodone IR 5MG TABLET PO PRN ×4 (11:30→20:55)
[2017-11-13] MEDS: PANTOPRAZOLE 40 MG IV IVPush SCH ×2 (11:30→23:03)
[2017-11-13] MEDS: FLUTICASONE/VILANTEROL 200-25MCG/INH INH SCH (11:30)
[2017-11-13] MEDS: SUCRALFATE 1 GM/10 ML UDC PO SCH ×4 (11:30→20:57)
[2017-11-13 13:56] LABS: MICROSCOPIC INDICATED
[2017-11-13 14:30] LABS: CULTURE INDICATED? YES
[2017-11-13] MEDS: ATORVASTATIN 80 MG TABLET PO SCH (20:51)
[2017-11-14] MEDS: OXYcodone IR 5MG TABLET PO PRN ×4 (01:07→18:33)
[2017-11-14 04:42] LABS: ANION GAP 3 mmol/L (5-15); CALCIUM 7.3 mg/dL (8.5-10.1); CHLORIDE 108 mmol/L (98-107); CREATININE 0.73 mg/dL (0.7-1.3)
[2017-11-14] MEDS: HYDROcodone/APAP 5/325 TABLET PO PRN ×3 (05:52→20:26)
[2017-11-14] MEDS: CARVEDILOL 3.125 MG TABLET PO SCH ×2 (05:52→16:22)
[2017-11-14] MEDS: DOCUSATE 100 MG CAPSULE PO SCH ×2 (07:21→19:55)
[2017-11-14] MEDS: POLYETHYLENE GLYCOL 17 GM PACKET PO SCH (07:21)
[2017-11-14] MEDS: FLUTICASONE/VILANTEROL 200-25MCG/INH INH SCH (07:28)
[2017-11-14] MEDS: SUCRALFATE 1 GM/10 ML UDC PO SCH ×4 (07:28→20:25)
[2017-11-14] MEDS ORDERED: POTASSIUM CHLORIDE 20 MEQ TAB.ER.PRT ONE (07:53)
[2017-11-14] MEDS ORDERED: POTASSIUM CHLORIDE 20 MEQ TAB.ER.PRT PO ONE (08:00)
[2017-11-14] MEDS: PANTOPRAZOLE 40 MG IV IVPush SCH ×2 (10:57→23:29)
[2017-11-14] MEDS: ASPIRIN 81 MG TABLET EC PO SCH (10:57)
[2017-11-14 11:52] VITALS: BP 144/73
[2017-11-14 14:00] VITALS: BP 132/70
[2017-11-14 19:32] VITALS: BP 114/70
[2017-11-14] MEDS: ATORVASTATIN 80 MG TABLET PO SCH (20:25)
[2017-11-15] VITALS (7 sets, daily range): BP systolic 96–127; BP diastolic 52–72
[2017-11-15] MEDS: HYDROcodone/APAP 5/325 TABLET PO PRN ×5 (02:02→22:08)
[2017-11-15 05:23] LABS: CALCIUM 7.3 mg/dL (8.5-10.1); CHLORIDE 106 mmol/L (98-107)
[2017-11-15 05:26] LABS: ANION GAP 6 mmol/L (5-15); CREATININE 0.72 mg/dL (0.7-1.3)
[2017-11-15] MEDS: CARVEDILOL 3.125 MG TABLET PO SCH ×2 (05:31→16:41)
[2017-11-15] MEDS: OXYcodone IR 5MG TABLET PO PRN ×3 (05:35→19:51)
[2017-11-15] MEDS: SUCRALFATE 1 GM/10 ML UDC PO SCH ×4 (07:41→19:54)
[2017-11-15] MEDS: DOCUSATE 100 MG CAPSULE PO SCH ×2 (07:42→19:42)
[2017-11-15] MEDS: POLYETHYLENE GLYCOL 17 GM PACKET PO SCH (07:42)
[2017-11-15] MEDS: ASPIRIN 81 MG TABLET EC PO SCH (07:42)
[2017-11-15] MEDS ORDERED: POTASSIUM CHLORIDE 20 MEQ TAB.ER.PRT PO SCH (08:00)
[2017-11-15] MEDS: FLUTICASONE/VILANTEROL 200-25MCG/INH INH SCH (08:01)
[2017-11-15] MEDS: PANTOPRAZOLE 40 MG IV IVPush SCH ×2 (10:41→22:08)
[2017-11-15] MEDS: ATORVASTATIN 80 MG TABLET PO SCH (19:51)
[2017-11-16] VITALS (11 sets, daily range): BP systolic 102–143; BP diastolic 53–90
[2017-11-16] MEDS: HYDROcodone/APAP 5/325 TABLET PO PRN ×3 (02:12→17:03)
[2017-11-16] MEDS: OXYcodone IR 5MG TABLET PO PRN ×4 (04:21→22:21)
[2017-11-16] MEDS: CARVEDILOL 3.125 MG TABLET PO SCH ×2 (05:17→17:03)
[2017-11-16 05:51] LABS: ANION GAP 7 mmol/L (5-15); CALCIUM 7.4 mg/dL (8.5-10.1); CHLORIDE 108 mmol/L (98-107); CREATININE 0.73 mg/dL (0.7-1.3)
[2017-11-16] MEDS ORDERED: POTASSIUM CHLORIDE 40 MEQ in SODIUM CHLORIDE 0.9% 500 ML IV ONE (07:30)
[2017-11-16 07:45] LABS: MEAN CORPUSCULAR HEMOGLOBIN 31.1 pg (27.5-34.5); MEAN CORPUSCULAR HGB CONC 33.9 g/dL (33.2-36.2); MEAN CORPUSCULAR VOLUME 91.8 fL (81-97); MEAN PLATELET VOLUME 8.9 fL (7.4-10.4); PLATELET COUNT 172 x10^3/uL (130-400); RED BLOOD COUNT 2.46 x10^6/uL (4.38-5.82); RED CELL DISTRIBUTION WIDTH 13.6 % (9.4-14.8)
[2017-11-16 07:57] LABS: BASOPHILS # (AUTO) 0.02 x10^3/uL (0-0.1); BASOPHILS % (AUTO) 0 % (0-1); EOSINOPHILS # (AUTO) 0.13 x10^3/uL (0-0.4); EOSINOPHILS % (AUTO) 1 % (1-7); LYMPHOCYTES # (AUTO) 3.17 x10^3/uL (1-3.4); LYMPHOCYTES % (AUTO) 18 % (22-44); MD SCAN; MONOCYTES # (AUTO) 1.08 x10^3/uL (0.2-0.8); MONOCYTES % (AUTO) 6 % (2-9); NEUTROPHILS # (AUTO) 13.06 x10^3/uL (1.8-6.8); NEUTROPHILS % (AUTO) 75 % (42-75)
[2017-11-16] MEDS: DOCUSATE 100 MG CAPSULE PO SCH (08:10)
[2017-11-16] MEDS: POLYETHYLENE GLYCOL 17 GM PACKET PO SCH (08:10)
[2017-11-16] MEDS: PANTOPRAZOLE 40 MG IV IVPush SCH ×2 (08:35→22:21)
[2017-11-16] MEDS: SUCRALFATE 1 GM/10 ML UDC PO SCH ×4 (08:35→22:21)
[2017-11-16] MEDS: FLUTICASONE/VILANTEROL 200-25MCG/INH INH SCH (08:35)
[2017-11-16] MEDS ORDERED: CALCIUM CHLORIDE 13.6 MEQ in SODIUM CHLORIDE 0.9% 100 ML IV ONE (09:00)
[2017-11-16] MEDS: ASPIRIN 81 MG TABLET EC PO SCH (09:16)
[2017-11-16 11:16] LABS: CLOSTRIDIUM DIFFICILE ANTIGEN NEGATIVE; CLOSTRIDIUM DIFFICILE TOXIN NEGATIVE (Negative)
[2017-11-16 15:37] LABS: BASOPHILS # (AUTO) 0.06 x10^3/uL (0-0.1); BASOPHILS % (AUTO) 0 % (0-1); EOSINOPHILS # (AUTO) 0.17 x10^3/uL (0-0.4); EOSINOPHILS % (AUTO) 1 % (1-7); LYMPHOCYTES # (AUTO) 3.31 x10^3/uL (1-3.4); LYMPHOCYTES % (AUTO) 16 % (22-44); MD NO; MEAN CORPUSCULAR HEMOGLOBIN 30.2 pg (27.5-34.5); MEAN CORPUSCULAR HGB CONC 33.8 g/dL (33.2-36.2); MEAN CORPUSCULAR VOLUME 89.3 fL (81-97); MEAN PLATELET VOLUME 9.2 fL (7.4-10.4); MONOCYTES # (AUTO) 1.34 x10^3/uL (0.2-0.8); MONOCYTES % (AUTO) 7 % (2-9); NEUTROPHILS # (AUTO) 15.87 x10^3/uL (1.8-6.8); NEUTROPHILS % (AUTO) 76 % (42-75); PLATELET COUNT 188 x10^3/uL (130-400); RED BLOOD COUNT 3.93 x10^6/uL (4.38-5.82); RED CELL DISTRIBUTION WIDTH 16.2 % (9.4-14.8)
[2017-11-16 15:38] LABS: HEMOGRAM NOTE @SEE COMMENT
[2017-11-16] MEDS: ATORVASTATIN 80 MG TABLET PO SCH (22:21)
[2017-11-17 01:07] VITALS: BP 157/78
[2017-11-17] MEDS: HYDROcodone/APAP 5/325 TABLET PO PRN ×3 (01:17→16:32)
[2017-11-17 03:26] LABS: ANION GAP 8 mmol/L (5-15); CALCIUM 7.6 mg/dL (8.5-10.1); CHLORIDE 113 mmol/L (98-107); CREATININE 0.76 mg/dL (0.7-1.3)
[2017-11-17] MEDS: OXYcodone IR 5MG TABLET PO PRN ×3 (04:54→20:09)
[2017-11-17 07:20] VITALS: BP 170/75
[2017-11-17 07:23] VITALS: BP 147/72
[2017-11-17] MEDS: CARVEDILOL 3.125 MG TABLET PO SCH ×2 (07:56→16:33)
[2017-11-17] MEDS: PANTOPRAZOLE 40 MG IV IVPush SCH ×2 (07:56→20:09)
[2017-11-17] MEDS: SUCRALFATE 1 GM/10 ML UDC PO SCH ×4 (07:56→20:09)
[2017-11-17] MEDS: DOCUSATE 100 MG CAPSULE PO SCH (07:57)
[2017-11-17] MEDS: POLYETHYLENE GLYCOL 17 GM PACKET PO SCH (07:57)
[2017-11-17] MEDS: ASPIRIN 81 MG TABLET EC PO SCH (07:57)
[2017-11-17] MEDS: FLUTICASONE/VILANTEROL 200-25MCG/INH INH SCH (09:37)
[2017-11-17] MEDS ORDERED: POTASSIUM CHLORIDE 30 MEQ in SODIUM CHLORIDE 0.9% 100 ML IV ONE (12:00)
[2017-11-17 14:16] VITALS: BP 150/71
[2017-11-17 20:07] VITALS: BP 154/84
[2017-11-17] MEDS: ATORVASTATIN 80 MG TABLET PO SCH (20:09)
[2017-11-17] MEDS: ZOLPIDEM 5MG TABLET PO PRN (22:11)
[2017-11-18 01:40] VITALS: BP 161/76
[2017-11-18] MEDS: HYDROcodone/APAP 5/325 TABLET PO PRN ×4 (03:36→21:36)
[2017-11-18 05:49] LABS: ANION GAP 9 mmol/L (5-15); CALCIUM 7.7 mg/dL (8.5-10.1); CHLORIDE 111 mmol/L (98-107); CREATININE 0.74 mg/dL (0.7-1.3)
[2017-11-18] MEDS: CARVEDILOL 3.125 MG TABLET PO SCH ×2 (06:21→16:39)
[2017-11-18] MEDS ORDERED: POTASSIUM CHLORIDE 30 MEQ in SODIUM CHLORIDE 0.9% 100 ML IV ONE (08:00)
[2017-11-18] MEDS: SUCRALFATE 1 GM/10 ML UDC PO SCH ×4 (08:06→19:53)
[2017-11-18] MEDS: FLUTICASONE/VILANTEROL 200-25MCG/INH INH SCH (08:06)
[2017-11-18] MEDS: PANTOPRAZOLE 40 MG IV IVPush SCH ×2 (08:06→19:53)
[2017-11-18] MEDS: DOCUSATE 100 MG CAPSULE PO SCH (08:06)
[2017-11-18] MEDS: POLYETHYLENE GLYCOL 17 GM PACKET PO SCH (08:07)
[2017-11-18 08:55] VITALS: BP 158/85
[2017-11-18] MEDS: OXYcodone IR 5MG TABLET PO PRN ×3 (10:04→19:53)
[2017-11-18 11:38] VITALS: BP 143/78
[2017-11-18] MEDS: LISINOPRIL 5 MG TABLET PO SCH (11:38)
[2017-11-18] MEDS ORDERED: MAGNESIUM SULFATE 1 GM in SODIUM CHLORIDE 0.9% 50 ML IV ONE (12:00)
[2017-11-18 15:30] VITALS: BP 126/71
[2017-11-18] MEDS: ATORVASTATIN 80 MG TABLET PO SCH (19:52)
[2017-11-18] MEDS ORDERED: DIPHENHYDRAMINE 50 MG CAPSULE ONE (21:00)
[2017-11-18] MEDS ORDERED: DIPHENHYDRAMINE 50 MG CAPSULE PO PRN (21:00)
[2017-11-18 21:06] VITALS: BP 130/72
[2017-11-18] MEDS: ZOLPIDEM 5MG TABLET PO PRN (23:25)
[2017-11-19 01:46] VITALS: BP 147/80
[2017-11-19] MEDS: OXYcodone IR 5MG TABLET PO PRN ×5 (03:47→19:42)
[2017-11-19] MEDS: HYDROcodone/APAP 5/325 TABLET PO PRN ×2 (05:04→17:36)
[2017-11-19] MEDS: CARVEDILOL 3.125 MG TABLET PO SCH ×3 (05:05→17:36)
[2017-11-19 05:39] LABS: ANION GAP 8 mmol/L (5-15); CALCIUM 7.4 mg/dL (8.5-10.1); CHLORIDE 111 mmol/L (98-107); CREATININE 0.73 mg/dL (0.7-1.3)
[2017-11-19] MEDS: FLUTICASONE/VILANTEROL 200-25MCG/INH INH SCH (07:52)
[2017-11-19] MEDS: SUCRALFATE 1 GM/10 ML UDC PO SCH ×4 (07:52→19:42)
[2017-11-19] MEDS: PANTOPRAZOLE 40 MG IV IVPush SCH ×2 (07:52→19:43)
[2017-11-19] MEDS: LISINOPRIL 5 MG TABLET PO SCH (07:52)
[2017-11-19 08:06] VITALS: BP 152/80
[2017-11-19] MEDS ORDERED: POTASSIUM CHLORIDE 20 MEQ TAB.ER.PRT PO ONE (09:00)
[2017-11-19] MEDS: POTASSIUM CHLORIDE 20 MEQ TAB.ER.PRT PO SCH (17:31)
[2017-11-19 17:33] VITALS: BP 122/64
[2017-11-19] MEDS: CALCIUM CARBONATE 500 MG TAB.CHEW PO PRN (18:41)
[2017-11-19] MEDS: ZOLPIDEM 5MG TABLET PO PRN (19:42)
[2017-11-19] MEDS: ATORVASTATIN 80 MG TABLET PO SCH (19:42)
[2017-11-19 19:45] VITALS: BP 108/68
[2017-11-20 01:57] VITALS: BP 111/64
[2017-11-20] MEDS: HYDROcodone/APAP 5/325 TABLET PO PRN ×2 (01:57→06:33)
[2017-11-20 02:23] LABS: ANION GAP 8 mmol/L (5-15); CALCIUM 7.3 mg/dL (8.5-10.1); CHLORIDE 113 mmol/L (98-107); CREATININE 0.88 mg/dL (0.7-1.3)
[2017-11-20 09:13] VITALS: BP 109/65
[2017-11-20] MEDS: POTASSIUM CHLORIDE 20 MEQ TAB.ER.PRT PO SCH ×2 (09:15→16:21)
[2017-11-20] MEDS: LISINOPRIL 5 MG TABLET PO SCH (09:15)
[2017-11-20] MEDS: PANTOPRAZOLE 40 MG IV IVPush SCH ×2 (09:17→20:10)
[2017-11-20] MEDS: FLUTICASONE/VILANTEROL 200-25MCG/INH INH SCH (09:17)
[2017-11-20] MEDS: OXYcodone IR 5MG TABLET PO PRN ×5 (09:17→23:57)
[2017-11-20] MEDS: SUCRALFATE 1 GM/10 ML UDC PO SCH ×4 (09:17→20:10)
[2017-11-20] MEDS ORDERED: CARV3.1212 PO (13:36)
[2017-11-20] MEDS ORDERED: ATOR-2 PO (13:36)
[2017-11-20] MEDS ORDERED: OXYC5TAB3 PO (13:36)
[2017-11-20] MEDS ORDERED: LISI5TAB7 PO (13:36)
[2017-11-20] MEDS ORDERED: FLUT1BLS INH (13:36)
[2017-11-20] MEDS ORDERED: PANT40TA3 PO (13:48)
[2017-11-20 14:37] VITALS: BP 98/62
[2017-11-20] MEDS: CARVEDILOL 3.125 MG TABLET PO SCH (16:20)
[2017-11-20 20:08] VITALS: BP 118/68
[2017-11-20] MEDS: ATORVASTATIN 80 MG TABLET PO SCH (20:10)
[2017-11-20] MEDS: ZOLPIDEM 5MG TABLET PO PRN (23:57)
[2017-11-21 01:09] VITALS: BP 148/73
[2017-11-21 02:21] LABS: ANION GAP 6 mmol/L (5-15); CALCIUM 7.6 mg/dL (8.5-10.1); CHLORIDE 111 mmol/L (98-107); CREATININE 0.82 mg/dL (0.7-1.3)
[2017-11-21] MEDS: OXYcodone IR 5MG TABLET PO PRN ×5 (04:18→17:31)
[2017-11-21] MEDS: CARVEDILOL 3.125 MG TABLET PO SCH ×2 (05:46→16:27)
[2017-11-21 06:40] VITALS: BP 137/74
[2017-11-21] MEDS: POTASSIUM CHLORIDE 20 MEQ TAB.ER.PRT PO SCH ×2 (07:42→16:28)
[2017-11-21] MEDS: LISINOPRIL 5 MG TABLET PO SCH (07:43)
[2017-11-21] MEDS: SUCRALFATE 1 GM/10 ML UDC PO SCH ×3 (07:43→16:27)
[2017-11-21] MEDS: PANTOPRAZOLE 40 MG IV IVPush SCH (07:43)
[2017-11-21] MEDS: FLUTICASONE/VILANTEROL 200-25MCG/INH INH SCH (07:43)
[2017-11-21 12:35] VITALS: BP 121/69
[2017-11-21] MEDS ORDERED: PANTOPROZOLE 40MG TABLET PO SCH (17:00)
== END 2017-11-22 05:30 | DRG 233 ==
LOC: 5SO 14:19 → CCU 11-02 11:01 → 5SO 11-14 11:48
PROVIDERS: ADMIT Hospitalist; ATTEND Hospitalist
PROC: 4A023N7 Measurement of Cardiac Sampling and Pressure, Left Heart, Percutaneous Approach (ICD-10-PCS; 2017-10-28)
PROC: B2111ZZ Fluoroscopy of Multiple Coronary Arteries using Low Osmolar Contrast (ICD-10-PCS; 2017-10-28)
PROC: B2151ZZ Fluoroscopy of Left Heart using Low Osmolar Contrast (ICD-10-PCS; 2017-10-28)
PROC: 02100Z9 Bypass Coronary Artery, One Artery from Left Internal Mammary, Open Approach (ICD-10-PCS; 2017-11-02)
PROC: 06BQ3ZZ Excision of Left Saphenous Vein, Percutaneous Approach (ICD-10-PCS; 2017-11-02)
PROC: 5A1221Z Performance of Cardiac Output, Continuous (ICD-10-PCS; 2017-11-02)
PROC: 30233R1 Transfusion of Nonautologous Platelets into Peripheral Vein, Percutaneous Approach (ICD-10-PCS; 2017-11-02)
PROC: 021009W Bypass Coronary Artery, One Artery from Aorta with Autologous Venous Tissue, Open Approach (ICD-10-PCS; principal; 2017-11-02 08:30)
PROC: 30233L1 Transfusion of Nonautologous Fresh Plasma into Peripheral Vein, Percutaneous Approach (ICD-10-PCS; 2017-11-10)
PROC: 30233N1 Transfusion of Nonautologous Red Blood Cells into Peripheral Vein, Percutaneous Approach (ICD-10-PCS; 2017-11-10)
PROC: 30233K1 Transfusion of Nonautologous Frozen Plasma into Peripheral Vein, Percutaneous Approach (ICD-10-PCS; 2017-11-10)
PROC: 0DB68ZX Excision of Stomach, Via Natural or Artificial Opening Endoscopic, Diagnostic (ICD-10-PCS; 2017-11-10)
PROC: 3E0G8GC Introduction of Other Therapeutic Substance into Upper GI, Via Natural or Artificial Opening Endoscopic (ICD-10-PCS; 2017-11-10)
PROC: 0T9B70Z Drainage of Bladder with Drainage Device, Via Natural or Artificial Opening (ICD-10-PCS; 2017-11-13)
PROC: 0DJ08ZZ Inspection of Upper Intestinal Tract, Via Natural or Artificial Opening Endoscopic (ICD-10-PCS; 2017-11-13)
DX: I21.4 Non-ST elevation (NSTEMI) myocardial infarction (principal); I50.43 Acute on chronic combined systolic (congestive) and diastolic (congestive) heart failure; J15.4 Pneumonia due to other streptococci; I95.9 Hypotension, unspecified; K26.4 Chronic or unspecified duodenal ulcer with hemorrhage; I48.91 Unspecified atrial fibrillation; I11.0 Hypertensive heart disease with heart failure; E83.42 Hypomagnesemia; I44.1 Atrioventricular block, second degree; I34.0 Nonrheumatic mitral (valve) insufficiency; I49.01 Ventricular fibrillation; D62 Acute posthemorrhagic anemia; J44.0 Chronic obstructive pulmonary disease with (acute) lower respiratory infection; J98.11 Atelectasis; I25.10 Atherosclerotic heart disease of native coronary artery without angina pectoris; I25.5 Ischemic cardiomyopathy; E78.5 Hyperlipidemia, unspecified; F17.210 Nicotine dependence, cigarettes, uncomplicated; K20.9 Esophagitis, unspecified; E87.6 Hypokalemia; F41.9 Anxiety disorder, unspecified; G89.29 Other chronic pain; M16.11 Unilateral primary osteoarthritis, right hip; N40.1 Benign prostatic hyperplasia with lower urinary tract symptoms; R09.02 Hypoxemia; Z51.5 Encounter for palliative care; Z79.82 Long term (current) use of aspirin; Z79.899 Other long term (current) drug therapy; Z82.49 Family history of ischemic heart disease and other diseases of the circulatory system; Z87.11 Personal history of peptic ulcer disease; Y92.89 Other specified places as the place of occurrence of the external cause
CPT/HCPCS: 36415; 36600; 70450; 71045; 71046; 80048; 80053; 80061; 81001; 81003; 82040; 82272; 82330; 82607; 82800; 82803; 82810; 82947; 82962; 83036; 83605; 83735; 84100; 84132; 84145; 84295; 84484; 84550; 85014; 85018; 85025; 85049; 85347; 85520; 85610; 85730; 86677; 86850; 86900; 86923; 87040; 87070; 87081; 87086; 87181; 87184; 87205; 87324; 88305; 93005; 93306; 93312; 93321; 93325; 93458; 93880; 93970; 94002; 94060; 94150; 94640; 99156; C1769; C1894; J0583; J1644; J1650; J1815; J2020; J2250; J2405; J2704; J3010; J3370; J3475; J3480; J3490; J7620; P9045; P9047; C1751; C1762; C9113; J0171; J0282; J1940; J2270; J2370; J2440; J2930; J7030; J7040; J7050; J7060; J7512; P9016; P9017; P9035; Q9967

== ENCOUNTER 2018-01-12 01:37 | Inpatient (IN) | payer MEDICARE ==
[~2018-01-12] VITALS: Ht 172.7 cm; Wt 74.0 kg
[~2018-01-12 01:37] MED LIST: ATOR-2 PO; CARV3.1212 PO; FLUT1BLS INH; LISI5TAB7 PO; OXYC5TAB3 PO; PANT40TA3 PO
[2018-01-12] MEDS ORDERED: CLOP75TA PO (02:00)
[2018-01-12] MEDS ORDERED: ASPI-515 PO (02:00)
[2018-01-12] MEDS ORDERED: FLUT1BLS INH (02:00)
[2018-01-12] MEDS ORDERED: SUPER BETA PROSTATE PO (02:00)
[2018-01-12 02:02] LABS: BASOPHILS # (AUTO) 0.01 x10^3/uL (0-0.1); BASOPHILS % (AUTO) 0 % (0-1); EOSINOPHILS # (AUTO) 0.37 x10^3/uL (0-0.4); EOSINOPHILS % (AUTO) 3 % (1-7); LYMPHOCYTES # (AUTO) 2.28 x10^3/uL (1-3.4); LYMPHOCYTES % (AUTO) 17 % (22-44); MD NO; MEAN CORPUSCULAR HEMOGLOBIN 27.4 pg (27.5-34.5); MEAN CORPUSCULAR HGB CONC 32.4 g/dL (33.2-36.2); MEAN CORPUSCULAR VOLUME 84.6 fL (81-97); MEAN PLATELET VOLUME 9.5 fL (7.4-10.4); MONOCYTES # (AUTO) 0.87 x10^3/uL (0.2-0.8); MONOCYTES % (AUTO) 6 % (2-9); NEUTROPHILS # (AUTO) 10.12 x10^3/uL (1.8-6.8); NEUTROPHILS % (AUTO) 74 % (42-75); PLATELET COUNT 203 x10^3/uL (130-400); RED BLOOD COUNT 4.71 x10^6/uL (4.38-5.82); RED CELL DISTRIBUTION WIDTH 15.8 % (9.4-14.8)
[2018-01-12 02:12] LABS: ALBUMIN 3.5 g/dL (3.4-5.0); ANION GAP 5 mmol/L (5-15); CALCIUM 8.7 mg/dL (8.5-10.1); CHLORIDE 107 mmol/L (98-107); CREATININE 1.02 mg/dL (0.7-1.3)
[2018-01-12 02:15] LABS: TROPONIN I 0.043 ng/mL (0.000-0.045)
[2018-01-12] MEDS ORDERED: MORPHINE SULFATE 4 MG/ML, 1ML ONE (03:11)
[2018-01-12] MEDS ORDERED: OMNIPAQUE 350 MG/ML, 100ML BOTTLE ONE (03:22)
[2018-01-12] MEDS ORDERED: MORPHINE SULFATE 4 MG/ML, 1ML IVPush PRN (03:30)
[2018-01-12 04:15] VITALS: BP 133/76
[2018-01-12] MEDS ORDERED: ACETAMINOPHEN 500 MG TABLET PO PRN (06:00)
[2018-01-12] MEDS ORDERED: hydrALAzine 20 MG/ML, 1ML IVPush PRN (06:00)
[2018-01-12 06:19] LABS: HCT (SEDRATE) 39.8 % (39.2-51.8)
[2018-01-12] MEDS: CARVEDILOL 3.125 MG TABLET PO SCH ×2 (06:30→17:54)
[2018-01-12] MEDS: SODIUM CHLORIDE 0.9% 1,000 ML IV SCH ×2 (06:30→18:54)
[2018-01-12] MEDS: HEPARIN 5,000 UNITS/ML, 1ML SQ SCH ×3 (06:30→22:20)
[2018-01-12 06:44] LABS: TROPONIN I 0.047 ng/mL (0.000-0.045)
[2018-01-12 08:03] VITALS: BP 127/75
[2018-01-12] MEDS: morphine SULFATE 10 MG/ML, 1ML IVPush PRN ×3 (08:45→20:00)
[2018-01-12] MEDS: ASPIRIN 81 MG TABLET EC PO SCH (08:47)
[2018-01-12] MEDS: PANTOPROZOLE 40MG TABLET PO SCH ×2 (08:47→20:00)
[2018-01-12] MEDS: CLOPIDOGREL 75 MG TABLET PO SCH (08:47)
[2018-01-12] MEDS: FLUTICASONE/VILANTEROL 200-25MCG/INH INH SCH (08:47)
[2018-01-12] MEDS ORDERED: LISINOPRIL 5 MG TABLET PO SCH (09:00)
[2018-01-12] MEDS: AZITHROMYCIN 500 MG TABLET PO SCH (10:03)
[2018-01-12] MEDS: KETOROLAC 30 MG/1 ML IVPush PRN ×2 (10:03→16:26)
[2018-01-12] MEDS: CEFTRIAXONE PMX 1GM/50ML 50 ML IV SCH (11:08)
[2018-01-12 12:32] LABS: TROPONIN I 0.036 ng/mL (0.000-0.045)
[2018-01-12] MEDS ORDERED: ALBUTEROL/IPRATROPIUM 2.5MG/0.5MG, 3 ML NPPB PRN (13:00)
[2018-01-12 14:19] VITALS: BP_SYST 78; BP_SYST 80; BP_DIAS 40; BP_DIAS 48
[2018-01-12 14:35] VITALS: BP 98/44
[2018-01-12 16:30] VITALS: BP 96/54
[2018-01-12] MEDS ORDERED: SODIUM CHLORIDE 0.9%, 500ML IVBOLUS ONE (18:00)
[2018-01-12] MEDS ORDERED: SODIUM CHLORIDE 0.9% 500 ML IV SCH (18:30)
[2018-01-12 19:12] VITALS: BP 97/57
[2018-01-12] MEDS: ATORVASTATIN 80 MG TABLET PO SCH (20:00)
[2018-01-12] MEDS ORDERED: TRAZ50TA18 PO (22:00)
[2018-01-12] MEDS: TRAZODONE 50MG TABLET PO PRN (22:20)
[2018-01-13] MEDS: SODIUM CHLORIDE 0.9% 1,000 ML IV SCH ×2 (00:51→08:23)
[2018-01-13 02:10] VITALS: BP 126/69
[2018-01-13] MEDS: KETOROLAC 30 MG/1 ML IVPush PRN ×3 (04:04→20:39)
[2018-01-13 05:11] LABS: BASOPHILS # (AUTO) 0.03 x10^3/uL (0-0.1); BASOPHILS % (AUTO) 0 % (0-1); EOSINOPHILS % (AUTO) 2 % (1-7); LYMPHOCYTES # (AUTO) 2.38 x10^3/uL (1-3.4); LYMPHOCYTES % (AUTO) 26 % (22-44); MD NO; MEAN CORPUSCULAR HEMOGLOBIN 27.3 pg (27.5-34.5); MEAN CORPUSCULAR HGB CONC 32.4 g/dL (33.2-36.2); MEAN CORPUSCULAR VOLUME 84.2 fL (81-97); MEAN PLATELET VOLUME 10.1 fL (7.4-10.4); MONOCYTES # (AUTO) 0.75 x10^3/uL (0.2-0.8); MONOCYTES % (AUTO) 8 % (2-9); NEUTROPHILS # (AUTO) 5.79 x10^3/uL (1.8-6.8); NEUTROPHILS % (AUTO) 63 % (42-75); PLATELET COUNT 147 x10^3/uL (130-400); RED BLOOD COUNT 4.18 x10^6/uL (4.38-5.82)
[2018-01-13 05:21] LABS: ANION GAP 5 mmol/L (5-15); CALCIUM 8.2 mg/dL (8.5-10.1); CHLORIDE 114 mmol/L (98-107); CREATININE 0.82 mg/dL (0.7-1.3)
[2018-01-13] MEDS: HEPARIN 5,000 UNITS/ML, 1ML SQ SCH ×3 (05:23→23:50)
[2018-01-13] MEDS: AZITHROMYCIN 500 MG TABLET PO SCH (08:55)
[2018-01-13] MEDS: FLUTICASONE/VILANTEROL 200-25MCG/INH INH SCH (08:55)
[2018-01-13] MEDS: ASPIRIN 81 MG TABLET EC PO SCH (08:55)
[2018-01-13] MEDS: PANTOPROZOLE 40MG TABLET PO SCH ×2 (08:55→20:39)
[2018-01-13] MEDS: CLOPIDOGREL 75 MG TABLET PO SCH (08:55)
[2018-01-13] MEDS: CEFTRIAXONE PMX 1GM/50ML 50 ML IV SCH (08:56)
[2018-01-13 09:06] LABS: % IRON SATURATION 7 % (20-55); IRON LEVEL 24 mcg/dL (65-175); TOTAL IRON BINDING CAPACITY 343 mcg/dL (250-450)
[2018-01-13 09:37] VITALS: BP 148/70
[2018-01-13] MEDS ORDERED: OXYcodone IR 5MG TABLET PO PRN (10:00)
[2018-01-13] MEDS ORDERED: FUROSEMIDE 40 MG/4 ML IV ONE (10:30)
[2018-01-13 10:47] LABS: ANION GAP 7 mmol/L (5-15); CALCIUM 8.1 mg/dL (8.5-10.1); CHLORIDE 111 mmol/L (98-107); CREATININE 0.91 mg/dL (0.7-1.3)
[2018-01-13] MEDS ORDERED: HYDR-3245 PO (10:48)
[2018-01-13] MEDS: LISINOPRIL 5 MG TABLET PO SCH (11:11)
[2018-01-13] MEDS: CARVEDILOL 3.125 MG TABLET PO SCH ×2 (11:11→17:18)
[2018-01-13] MEDS ORDERED: HYDROcodone/APAP 10/325 MG TABLET PO PRN (11:30)
[2018-01-13 13:38] VITALS: BP 128/65
[2018-01-13] MEDS: HYDROcodone/APAP 10/325 MG TABLET PO PRN ×2 (17:19→23:50)
[2018-01-13 18:42] VITALS: BP 113/58
[2018-01-13] MEDS: TRAZODONE 50MG TABLET PO PRN (20:39)
[2018-01-13] MEDS: ATORVASTATIN 80 MG TABLET PO SCH (20:39)
[2018-01-14 00:34] VITALS: BP 132/68
[2018-01-14] MEDS: CARVEDILOL 3.125 MG TABLET PO SCH (05:58)
[2018-01-14] MEDS: HYDROcodone/APAP 10/325 MG TABLET PO PRN ×2 (05:58→11:52)
[2018-01-14 06:40] VITALS: BP 133/71
[2018-01-14] MEDS: AZITHROMYCIN 500 MG TABLET PO SCH (08:17)
[2018-01-14] MEDS: CLOPIDOGREL 75 MG TABLET PO SCH (08:17)
[2018-01-14] MEDS: PANTOPROZOLE 40MG TABLET PO SCH (08:17)
[2018-01-14] MEDS: FLUTICASONE/VILANTEROL 200-25MCG/INH INH SCH (08:18)
[2018-01-14] MEDS: ASPIRIN 81 MG TABLET EC PO SCH (08:18)
[2018-01-14] MEDS: LISINOPRIL 5 MG TABLET PO SCH (08:18)
[2018-01-14] MEDS: HEPARIN 5,000 UNITS/ML, 1ML SQ SCH (08:19)
[2018-01-14] MEDS ORDERED: DOXY100T PO (08:52)
[2018-01-14] MEDS ORDERED: FERR-51 PO (08:55)
[2018-01-14] MEDS: CEFTRIAXONE PMX 1GM/50ML 50 ML IV SCH (10:00)
[2018-01-18] MEDS ORDERED: IRON SUCROSE COMPLEX 100MG/5ML IV SCH (10:30)
== END 2018-01-14 12:43 | disposition home or self-care (01) | DRG 871 ==
LOC: ED 02:04 → EDIP 03:07 → 5SO 04:04
PROVIDERS: ADMIT Hospitalist; ATTEND Hospitalist
DX: A41.9 Sepsis, unspecified organism (principal); J96.01 Acute respiratory failure with hypoxia; I50.43 Acute on chronic combined systolic (congestive) and diastolic (congestive) heart failure; J18.9 Pneumonia, unspecified organism; I11.0 Hypertensive heart disease with heart failure; I24.8 Other forms of acute ischemic heart disease; I48.91 Unspecified atrial fibrillation; D50.9 Iron deficiency anemia, unspecified; F11.90 Opioid use, unspecified, uncomplicated; J44.0 Chronic obstructive pulmonary disease with (acute) lower respiratory infection; J44.1 Chronic obstructive pulmonary disease with (acute) exacerbation; Z95.1 Presence of aortocoronary bypass graft; G89.29 Other chronic pain; F17.200 Nicotine dependence, unspecified, uncomplicated; I25.10 Atherosclerotic heart disease of native coronary artery without angina pectoris; E78.5 Hyperlipidemia, unspecified; Z82.49 Family history of ischemic heart disease and other diseases of the circulatory system; I25.2 Old myocardial infarction; Z71.6 Tobacco abuse counseling; Z84.1 Family history of disorders of kidney and ureter; Z80.9 Family history of malignant neoplasm, unspecified; Z88.0 Allergy status to penicillin; Z88.8 Allergy status to other drugs, medicaments and biological substances
CPT/HCPCS: 0399T; 36415; 71045; 71275; 80048; 82040; 83540; 83550; 83690; 83735; 83880; 84100; 84484; 85025; 85651; 87070; 87205; 93005; 93306; 94640; 96374; J0696; J1644; J1885; J1940; J7620; Q9967; J2270; J7030; J7040